=== PATIENT | female | born 1950 | race Caucasian/White ===

== ENCOUNTER 2018-08-17 16:49 | Observation (INO) | payer MEDICARE ==
[~2018-08-17] VITALS: Ht 177.8 cm; Wt 88.8 kg
[~2018-08-17 16:49] MED LIST: ALBU90I INH; ALBU90OI6 INH; ALBU90OI61 INH; ALEN35 PO; ALEN70 PO; ALPR.25 PO; AMIT25 PO; ATEN25 PO; ATEN50 PO; ATOR40TA PO; Antivert25 MG PO; BUPR150ER PO; CALCA500CH PO; CALCAVITD PO; CHOLESTYRAMINE PO; CITA20 PO; CYAN1000 PO; CYCL10 PO; Calcium + Vita1 EACH PO; Cortef5 MG PO; ERGO400 PO; ESOM20 PO; FERR325 PO; FERREX PO; FERROUS SULFATE PO; FIBER PO; FROV2.5 PO; GEMF600 PO; HYDACE10B PO; HYDCOR10 PO; HYOS.125 SL; IPRAOI INH; LEVSOD150 PO; LEVSOD200 PO; LISI10 PO; LISI5 PO; LOPE2C PO; LOVA40 PO; METO10 PO; OMEP20ER PO; OXYACE5T PO; PREG150 PO; PROM25 PO; Percocet 5-3251 EACH PO; Prilosec Otc20 MG PO; RANI150 PO; TOPI100 PO; TOPI50; TOPI50 PO; TRAM50 PO; TRAZ100 PO; TRAZ50 PO; ULTRA-LIGHT RO1 EACH MC; VITAMIN B12 PO; WARF1 PO; WARF5 PO; WARF7.5 PO; ZOLM2.5 PO; ZOLM5 PO; Zantac150 MG PO
[2018-08-17 17:20] LABS: BASOPHILS ABSOLUTE AUTO 0.03 K/mm3 (0.00-0.23); BASOPHILS PERCENT AUTO 0 % (0-2); EOSINOPHILS ABSOLUTE AUTO 0.01 K/mm3 (0.00-0.68); EOSINOPHILS PERCENT AUTO 0 % (0-6); Hematocrit 35.2 % (33.0-51.0); IMMATURE GRAN ABSOLUTE AUTO 0.09 K/mm3 (0.00-0.10); IMMATURE GRAN PERCENT AUTO 1 % (0-1); LYMPHOCYTES ABSOLUTE AUTO 1.94 K/mm3 (0.84-5.20); LYMPHOCYTES PERCENT AUTO 13 % (21-46); MONOCYTES ABSOLUTE AUTO 1.21 K/mm3 (0.16-1.47); MONOCYTES PERCENT AUTO 8 % (4-13); Mean Corpuscular HGB 32.9 pg (26.0-34.0); Mean Corpuscular HGB Conc 34.1 g/dL (31.5-36.5); Mean Platelet Volume 10.9 fL (9.1-12.4); NEUTROPHILS PERCENT AUTO 79 % (41-73); Platelet Count 286 K/mm3 (150-400); RDW Coefficient Variation 12.9 % (11.7-14.2); Red Blood Cell Count 3.65 M/mm3 (3.80-5.20); White Blood Cell Count 15.58 K/mm3 (4.00-11.30)
[2018-08-17 17:27] LABS: Mean Corpuscular Volume 96 fL (80-100)
[2018-08-17 17:34] LABS: International Normalized Ratio 1.06; Prothrombin Time Results 11.2 Sec (9.7-11.5)
[2018-08-17 17:44] LABS: Alanine Aminotransfer (ALT/SGP 38 U/L (12-78); Albumin/Globulin Ratio 0.6 (0.8-1.8); Alk Phos 69 U/L (50-136); Anion Gap 14 mmol/L (6-16); Aspartate Aminotrans (AST/SGOT 40 U/L (12-37); Bilirubin, Total 1.3 mg/dL (0.1-1.0); Blood Urea Nitrogen 23 mg/dL (8-24); Bun/Creatinine Ratio 12.2 (12.0-20.0); CO2, Blood 18 mmol/L (21-32); Chloride, Blood 101 mmol/L (98-108); Creatinine, Blood 1.89 mg/dL (0.40-1.00); Globulin, Blood 5.2 g/dL (2.2-4.0); Glomerular Filtration Rate 28 (60-); Glucose, Blood 196 mg/dL (70-99); Potassium, Blood 3.5 mmol/L (3.5-5.5); Sodium, Blood 133 mmol/L (136-145); Total Protein, Blood 8.2 g/dL (6.4-8.2); Troponin I <0.015 ng/mL (0.000-0.040)
[2018-08-17 18:53] LABS: Magnesium, Blood 2.1 mg/dL (1.6-2.4)
[2018-08-17 18:55] LABS: Thyroid Stimulating Hormone 0.015 uIU/mL (0.360-4.800)
[2018-08-17 19:01] LABS: Influenza A Negative (NEGATIVE); Influenza B Negative (NEGATIVE)
[2018-08-17 19:46] LABS: Free Thyroxine 1.46 ng/dL (0.70-1.60)
[2018-08-17 19:47] LABS: Triiodothyronine, Free 1.49 pg/mL (2.18-3.98)
[2018-08-17] MEDS ORDERED: METO50ER PO (19:48)
[2018-08-18 03:27] LABS: BASOPHILS ABSOLUTE AUTO 0.01 K/mm3 (0.00-0.23); BASOPHILS PERCENT AUTO 0 % (0-2); EOSINOPHILS ABSOLUTE AUTO 0.01 K/mm3 (0.00-0.68); EOSINOPHILS PERCENT AUTO 0 % (0-6); Hematocrit 28.8 % (33.0-51.0); Hemoglobin 9.4 g/dL (11.5-16.0); IMMATURE GRAN ABSOLUTE AUTO 0.05 K/mm3 (0.00-0.10); IMMATURE GRAN PERCENT AUTO 1 % (0-1); LYMPHOCYTES ABSOLUTE AUTO 0.62 K/mm3 (0.84-5.20); LYMPHOCYTES PERCENT AUTO 6 % (21-46); MONOCYTES ABSOLUTE AUTO 0.49 K/mm3 (0.16-1.47); MONOCYTES PERCENT AUTO 5 % (4-13); Mean Corpuscular HGB 32.1 pg (26.0-34.0); Mean Corpuscular HGB Conc 32.6 g/dL (31.5-36.5); Mean Corpuscular Volume 98 fL (80-100); NEUTROPHILS ABSOLUTE AUTO 9.37 K/mm3 (1.96-9.15); NEUTROPHILS PERCENT AUTO 89 % (41-73); Platelet Count 217 K/mm3 (150-400); RDW Coefficient Variation 13.1 % (11.7-14.2); RDW Standard Deviation 47.2 fL (35.1-46.3); Red Blood Cell Count 2.93 M/mm3 (3.80-5.20); White Blood Cell Count 10.55 K/mm3 (4.00-11.30)
[2018-08-18] MEDS ORDERED: XARELTO10 MG PO (03:37)
[2018-08-18 03:41] LABS: Bun/Creatinine Ratio 13.3 (12.0-20.0); Calcium, Blood 7.6 mg/dL (8.5-10.1); Creatinine, Blood 1.65 mg/dL (0.40-1.00); Potassium, Blood 3.5 mmol/L (3.5-5.5)
--- NOTE | 2018-08-18 07:31 | NUR ---
SHIFT SUMMARY PATIENT ADMITTED EARLIER THIS SHIFT. PATIENT ORIENTED TO THE ROOM, UNIT, AND CALL LIGHT. PATIENT PLEASENT AND COOPERATIVE. PATIENT ON CARDIZEM GTT AT 5 ML/HR. PATIENT ABLE TO GET UP TO THE BSC TO VOID AND WAS CONTINENT THROUGHOUT THE NIGHT. PATIENT APPEARED TO SLEEP WELL THROUGHOUT THE NIGHT. PATIENT ABLE TO MOVE SELF ABOUT IN BED. VITAL SIGNS CHARTED. REPORT GIVEN TO ONCOMING RN.
--- NOTE | 2018-08-18 07:44 | NUR ---
Pt noted to be in sinus rhythm, rate 86 bpm. Cardizem turned off and oral metoprolol given at this time. Vital signs WNL; the pt reports no complaints except for a productive cough with "dark brown sputum". States that had decreased her cigarette use to 1/3 pack a day, and has quit completely as of 1 week ago. She plans on quitting smoking from now on. Assisted to the bedside commode to void. She states that she is unsteady and feels weak. Gait belt used for transfer. Assisted back in bed at her request. She declined to use the chair for breakfast.
--- NOTE | 2018-08-18 08:36 | NUR ---
Call to the pt's pharmacy at this time to request current medication list with dosages and directions. The pt I was told was uncertain of these and the med list provided at admission was incomplete.
[2018-08-18] MEDS ORDERED: BUPR150ER PO (09:38)
[2018-08-18] MEDS ORDERED: VOLTAREN100 GM TOP (09:41)
[2018-08-18] MEDS ORDERED: LEVSOD137 PO (10:10)
[2018-08-18] MEDS ORDERED: TOPI50 PO (10:13)
[2018-08-18] MEDS ORDERED: SODBIC650 PO (10:18)
[2018-08-18] MEDS ORDERED: Cortef5 MG PO (10:20)
--- NOTE | 2018-08-18 10:30 | NUR ---
The pt is a bit wobbly on her feet. She states that at home she does not use a walker, but uses the furniture to stablize herself while moving around. She describes herself as "unsteady" on her feet, but denies having had any falls at home. We used the gait belt and 2 staff and then gait belt, FWW, and 1 staff member to assist her to and from the bathroom. Denies dizzyness/lightheadedness/pain with activity or at rest. Stool specimen collected and sent for GI panel as ordered.
--- NOTE | 2018-08-18 11:08 | NUR ---
The pt stood, walked into the hallway with the walker. Gait belt in use. Pt denied dizzyness/lightheadedness/pain, but once in the hallway she said that she thought she felt a little short of breath. Respirations observed were even, unlabored, at rate of 20/min and spo2 of 97%. No coughing, no dyspnea that I observed during the activity. She was stable on her feet with the use of the walker. Called Dr Steiner to notify her of the updated home med rec per pt's pharmacy records, and that the pt had systolic blood pressure of 94 mmHg, likely due to the higher dose of lisinopril given this morning, higher than what the pt usually takes at home, and the pt states that she usually takes it at night.
[2018-08-18 11:23] LABS: Adenovirus F 40/41 Not Detected (NOT DETECT); Campylobacter Sp Not Detected (NOT DETECT); Cryptosporidium Not Detected (NOT DETECT); Cyclospora Cayetanensis Not Detected (NOT DETECT); E. Coli O157 Not Detected (NOT DETECT); Entamoeba Histolytica Not Detected (NOT DETECT); Enteroaggregative E. coli-EAEC Not Detected (NOT DETECT); Enteropathogenic E. coli-EPEC Not Detected (NOT DETECT); Enterotoxigenic E. coli-ETEC Not Detected (NOT DETECT); Giardia Lamblia Not Detected (NOT DETECT); Plesiomonas Shigelloides Not Detected (NOT DETECT); Salmonella Sp Not Detected (NOT DETECT); Shiga Toxin-prod E. coli-STEC Not Detected (NOT DETECT); Shigella/Enteroin E. coli-EIEC Not Detected (NOT DETECT); Vibrio Cholerae Not Detected (NOT DETECT); Vibrio Sp Not Detected (NOT DETECT); Yersinia Enterocolitica Not Detected (NOT DETECT)
[2018-08-18 11:24] LABS: Astrovirus Not Detected (NOT DETECT); Norovirus GI/GII Not Detected (NOT DETECT); Rotavirus A Not Detected (NOT DETECT); Sapovirus Not Detected (NOT DETECT)
[2018-08-18] MEDS ORDERED: CALCIUM 500 +1 EAC3 PO (14:34)
[2018-08-18] MEDS ORDERED: BENZ100A PO (14:34)
[2018-08-18] MEDS ORDERED: LEVO750 PO (14:35)
--- NOTE | 2018-08-18 16:51 | NUR ---
Written prescription for front wheel walker was obtained from Dr. Steiner and handed to the patient. She was taken out for discharge in a wheelchair by the ADVERTISING VICE PRESIDENT to a private vehicle driven by the pt's [id number].
== END 2018-08-18 16:24 | disposition home or self-care (01) ==
LOC: ER 16:49 → PCU 16:50
PROVIDERS: Emergency Medicine; ADMIT Hospitalist
DX: I48.91 Unspecified atrial fibrillation (principal); J44.1 Chronic obstructive pulmonary disease with (acute) exacerbation; R19.7 Diarrhea, unspecified; E03.9 Hypothyroidism, unspecified; E11.9 Type 2 diabetes mellitus without complications; F32.9 Major depressive disorder, single episode, unspecified; F41.9 Anxiety disorder, unspecified; D50.9 Iron deficiency anemia, unspecified; R53.1 Weakness; F17.210 Nicotine dependence, cigarettes, uncomplicated; N18.3 Chronic kidney disease, stage 3 (moderate); Z88.1 Allergy status to other antibiotic agents; Z88.2 Allergy status to sulfonamides; Z79.01 Long term (current) use of anticoagulants; Z79.899 Other long term (current) drug therapy
CPT/HCPCS: 36415; 71046; 80048; 80053; 83605; 83735; 83880; 84145; 84439; 84443; 84481; 84484; 85025; 85610; 87507; 87804; 93005; 93010; 96365; 96366; 96367; 97116; 97161; 99285-25; G0378; J0696; J7030; J7120

== ENCOUNTER 2018-11-07 20:04 | Emergency (ER) | payer MEDICARE ==
[~2018-11-07] VITALS: Ht 170.2 cm; Wt 100.2 kg
[~2018-11-07 20:04] MED LIST changes: +BENZ100A PO; +CALCIUM 500 +1 EAC3 PO; +LEVO750 PO; +LEVSOD137 PO; +METO50ER PO; +SODBIC650 PO; +VOLTAREN100 GM TOP; +XARELTO10 MG PO
[2018-11-07 21:19] LABS: BASOPHILS ABSOLUTE AUTO 0.06 K/mm3 (0.00-0.23); BASOPHILS PERCENT AUTO 1 % (0-2); EOSINOPHILS ABSOLUTE AUTO 0.22 K/mm3 (0.00-0.68); EOSINOPHILS PERCENT AUTO 2 % (0-6); Hematocrit 35.4 % (33.0-51.0); Hemoglobin 11.7 g/dL (11.5-16.0); IMMATURE GRAN ABSOLUTE AUTO 0.03 K/mm3 (0.00-0.10); IMMATURE GRAN PERCENT AUTO 0 % (0-1); LYMPHOCYTES ABSOLUTE AUTO 3.28 K/mm3 (0.84-5.20); LYMPHOCYTES PERCENT AUTO 27 % (21-46); MONOCYTES ABSOLUTE AUTO 0.64 K/mm3 (0.16-1.47); MONOCYTES PERCENT AUTO 5 % (4-13); Mean Corpuscular HGB 33.3 pg (26.0-34.0); Mean Corpuscular HGB Conc 33.1 g/dL (31.5-36.5); Mean Corpuscular Volume 101 fL (80-100); Mean Platelet Volume 10.4 fL (9.1-12.4); NEUTROPHILS ABSOLUTE AUTO 7.77 K/mm3 (1.96-9.15); NEUTROPHILS PERCENT AUTO 65 % (41-73); Platelet Count 198 K/mm3 (150-400); RDW Coefficient Variation 13.4 % (11.7-14.2); RDW Standard Deviation 49.9 fL (35.1-46.3); Red Blood Cell Count 3.51 M/mm3 (3.80-5.20)
[2018-11-07 21:41] LABS: Albumin, Blood 3.9 g/dL (3.4-5.0); Albumin/Globulin Ratio 1.1 (0.8-1.8); Bilirubin, Total 0.7 mg/dL (0.1-1.0); Bun/Creatinine Ratio 6.8 (12.0-20.0); Calcium, Blood 8.8 mg/dL (8.5-10.1); Creatinine, Blood 1.77 mg/dL (0.40-1.00); Globulin, Blood 3.4 g/dL (2.2-4.0); Potassium, Blood 3.7 mmol/L (3.5-5.5); Total Protein, Blood 7.3 g/dL (6.4-8.2)
== END 2018-11-07 23:30 | disposition home or self-care (01) ==
LOC: ER 20:04
PROVIDERS: Emergency Medicine
DX: T62.91XA Toxic effect of unspecified noxious substance eaten as food, accidental (unintentional), initial encounter (principal); E11.9 Type 2 diabetes mellitus without complications; I48.91 Unspecified atrial fibrillation; Z88.1 Allergy status to other antibiotic agents; Z88.2 Allergy status to sulfonamides; Z91.030 Bee allergy status; Z91.048 Other nonmedicinal substance allergy status; Z88.8 Allergy status to other drugs, medicaments and biological substances
CPT/HCPCS: 36415; 80053; 83690; 85025; 93005; 93010; 96361; 96374; 99283-25; A9270-GY; J2405; J7030

== ENCOUNTER → 2020-02-01 | Outpatient (CLI) | payer MEDICARE ==
[2020-02-02 14:29] LABS: Stool Occult Bld Immuno 1 Positive (NEGATIVE); Stool Occult Bld Immuno 2 Positive (NEGATIVE)
[2020-02-02 17:22] LABS: Campylobacter Sp Not Detected (NOT DETECT)
[2020-02-02 17:23] LABS: Adenovirus F 40/41 Not Detected (NOT DETECT); Astrovirus Not Detected (NOT DETECT); Cryptosporidium Not Detected (NOT DETECT); Cyclospora Cayetanensis Not Detected (NOT DETECT); E. Coli O157 Not Detected (NOT DETECT); Entamoeba Histolytica Not Detected (NOT DETECT); Enteroaggregative E. coli-EAEC Not Detected (NOT DETECT); Enteropathogenic E. coli-EPEC Not Detected (NOT DETECT); Enterotoxigenic E. coli-ETEC Not Detected (NOT DETECT); Giardia Lamblia Not Detected (NOT DETECT); Norovirus GI/GII Not Detected (NOT DETECT); Plesiomonas Shigelloides Not Detected (NOT DETECT); Rotavirus A Not Detected (NOT DETECT); Salmonella Sp Not Detected (NOT DETECT); Sapovirus Not Detected (NOT DETECT); Shiga Toxin-prod E. coli-STEC Not Detected (NOT DETECT); Shigella/Enteroin E. coli-EIEC Not Detected (NOT DETECT); Vibrio Cholerae Not Detected (NOT DETECT); Vibrio Sp Not Detected (NOT DETECT); Yersinia Enterocolitica Not Detected (NOT DETECT)
== END | disposition home or self-care (01) ==
LOC: LAB SHORT 09:00 → LAB 09:00 → LAB FUT 01-27 14:30
PROVIDERS: Internal Medicine Gastroenterology
DX: D69.6 Thrombocytopenia, unspecified (principal); R19.7 Diarrhea, unspecified
CPT/HCPCS: 0097U; 82274

== ENCOUNTER 2020-03-14 08:50 | Day surgery (SDC) | payer MEDICARE ==
[~2020-03-14 08:50] MED LIST changes: +ANORO ELLIPTA1 EAC1; +HYDHCL25 PO; +PARO10 PO; +Prinivil10 MG PO; +Vitamin D2000 UNIT PO; +XARELTO20 MG PO
== END 2020-03-14 11:54 | disposition home or self-care (01) ==
LOC: ORSCSDS 08:50
PROVIDERS: Internal Medicine Gastroenterology
PROC: 0DBN8ZX Excision of Sigmoid Colon, Via Natural or Artificial Opening Endoscopic, Diagnostic (ICD-10-PCS; principal; 2020-03-14 10:15)
PROC: 0DBE8ZX Excision of Large Intestine, Via Natural or Artificial Opening Endoscopic, Diagnostic (ICD-10-PCS; principal; 2020-03-14 10:15)
PROC: 0DBH8ZX Excision of Cecum, Via Natural or Artificial Opening Endoscopic, Diagnostic (ICD-10-PCS; principal; 2020-03-14 10:15)
PROC: 0DBM8ZX Excision of Descending Colon, Via Natural or Artificial Opening Endoscopic, Diagnostic (ICD-10-PCS; principal; 2020-03-14 10:15)
DX: R19.5 Other fecal abnormalities (principal); R19.7 Diarrhea, unspecified; D12.0 Benign neoplasm of cecum; D12.4 Benign neoplasm of descending colon; K63.5 Polyp of colon; R74.8 Abnormal levels of other serum enzymes; K57.30 Diverticulosis of large intestine without perforation or abscess without bleeding; F17.210 Nicotine dependence, cigarettes, uncomplicated; Z79.01 Long term (current) use of anticoagulants; Z79.899 Other long term (current) drug therapy
CPT/HCPCS: 82947; 88305; J2704; J7120

== ENCOUNTER 2020-05-03 05:11 | Inpatient (IN) | payer MEDICARE ==
[~2020-05-03] VITALS: Ht 170.2 cm; Wt 81.7 kg
[2020-05-03 06:03] LABS: BASOPHILS ABSOLUTE AUTO 0.05 K/mm3 (0.00-0.23); BASOPHILS PERCENT AUTO 1 % (0-2); EOSINOPHILS ABSOLUTE AUTO 0.14 K/mm3 (0.00-0.68); EOSINOPHILS PERCENT AUTO 2 % (0-6); Hematocrit 33.1 % (33.0-51.0); Hemoglobin 10.7 g/dL (11.5-16.0); IMMATURE GRAN ABSOLUTE AUTO 0.02 K/mm3 (0.00-0.10); IMMATURE GRAN PERCENT AUTO 0 % (0-1); LYMPHOCYTES ABSOLUTE AUTO 3.33 K/mm3 (0.84-5.20); LYMPHOCYTES PERCENT AUTO 40 % (21-46); MONOCYTES PERCENT AUTO 10 % (4-13); Mean Corpuscular HGB 33.3 pg (26.0-34.0); Mean Corpuscular HGB Conc 32.3 g/dL (31.5-36.5); Mean Corpuscular Volume 103 fL (80-100); NEUTROPHILS ABSOLUTE AUTO 4.01 K/mm3 (1.96-9.15); NEUTROPHILS PERCENT AUTO 48 % (41-73); Platelet Count 203 K/mm3 (150-400); RDW Coefficient Variation 12.7 % (11.7-14.2); Red Blood Cell Count 3.21 M/mm3 (3.80-5.20); White Blood Cell Count 8.35 K/mm3 (4.00-11.30)
[2020-05-03 06:15] LABS: Albumin/Globulin Ratio 0.9 (0.8-1.8); Bilirubin, Total 0.2 mg/dL (0.1-1.0); Bun/Creatinine Ratio 10.9 (12.0-20.0); Calcium, Blood 8.5 mg/dL (8.5-10.1); Creatinine, Blood 1.01 mg/dL (0.40-1.00); Globulin, Blood 3.3 g/dL (2.2-4.0); Potassium, Blood 4.2 mmol/L (3.5-5.5); Total Protein, Blood 6.3 g/dL (6.4-8.2)
[2020-05-03 08:16] LABS: Source, Urine Catheter
[2020-05-03 08:23] LABS: Appearance, Urine Clear (Clear); Bilirubin, Urine Neg (Neg); Blood, Urine Neg (Neg); Color, Urine Yellow (P-Yellow); Glucose Qualitative, Urine Neg (Neg); Ketones, Urine Neg (Neg); Leukocyte Esterase, Urine Neg (Neg); Nitrite, Urine Neg (Neg); Protein, Urine Neg (Neg); Urobilinogen, Urine NORM (Normal)
[2020-05-03] MEDS ORDERED: Cortef5 MG PO ×2 (11:50→11:51)
[2020-05-03] MEDS ORDERED: LISI5 PO (11:51)
[2020-05-03] MEDS ORDERED: PAXIL40 M1 PO (11:51)
[2020-05-03] MEDS ORDERED: STIOLTO RESPIMAT4 G1 INH (11:52)
[2020-05-03] MEDS ORDERED: DDAVP0.1 MG PO (11:52)
[2020-05-03] MEDS ORDERED: ATOR40TA PO (11:52)
[2020-05-03] MEDS ORDERED: K-TAB ER20 ME1 PO (11:52)
[2020-05-03] MEDS ORDERED: SYNTHROID137 MCG PO (11:53)
[2020-05-03] MEDS ORDERED: Inderal 20 mg T20 MG PO (11:53)
[2020-05-03] MEDS ORDERED: IMITREX50 MG PO (11:54)
[2020-05-03] MEDS ORDERED: TROKENDI XR100 MG PO (11:54)
--- NOTE | 2020-05-03 18:26 | NUR ---
SHIFT SUMMARY S/P L HIP FX, A/O X4, VSS, WAS NPO TILL SURGICAL CONSULT, PLAN IS TO HAVE SURGERY TOMORROW, WILL ORDER DINNER TRAY AND RESUME NPO AFTER MIDNIGHT. ON BEDREST TILL SURGERY, PAIN WELL CONTROLLED. CALL LIGHT IN REACH, WILL CONTINUE TO MONITOR AND REPORT TO ONCOMING NOC RN.
--- NOTE | 2020-05-03 23:07 | NUR ---
TELEMETRY APPLIED PER MD ORDERS, SHOWS NSR 72 PER EVAN SANCHEZ. SAFETY MEASURES IN PLACE. WILL CONTINUE TO MONITOR.
[2020-05-04 04:44] LABS: BASOPHILS ABSOLUTE AUTO 0.08 K/mm3 (0.00-0.23); BASOPHILS PERCENT AUTO 1 % (0-2); EOSINOPHILS ABSOLUTE AUTO 0.14 K/mm3 (0.00-0.68); EOSINOPHILS PERCENT AUTO 1 % (0-6); Hematocrit 34.3 % (33.0-51.0); IMMATURE GRAN ABSOLUTE AUTO 0.03 K/mm3 (0.00-0.10); IMMATURE GRAN PERCENT AUTO 0 % (0-1); LYMPHOCYTES ABSOLUTE AUTO 3.29 K/mm3 (0.84-5.20); LYMPHOCYTES PERCENT AUTO 28 % (21-46); MONOCYTES ABSOLUTE AUTO 1.07 K/mm3 (0.16-1.47); MONOCYTES PERCENT AUTO 9 % (4-13); Mean Corpuscular HGB 32.8 pg (26.0-34.0); Mean Corpuscular HGB Conc 32.1 g/dL (31.5-36.5); Mean Corpuscular Volume 102 fL (80-100); Mean Platelet Volume 10.5 fL (9.1-12.4); NEUTROPHILS PERCENT AUTO 61 % (41-73); Platelet Count 197 K/mm3 (150-400); RDW Coefficient Variation 12.6 % (11.7-14.2); RDW Standard Deviation 47.4 fL (35.1-46.3); Red Blood Cell Count 3.35 M/mm3 (3.80-5.20); White Blood Cell Count 11.71 K/mm3 (4.00-11.30)
[2020-05-04 05:28] LABS: Bun/Creatinine Ratio 11.6 (12.0-20.0); Calcium, Blood 8.8 mg/dL (8.5-10.1); Creatinine, Blood 1.12 mg/dL (0.40-1.00); Potassium, Blood 3.9 mmol/L (3.5-5.5)
--- NOTE | 2020-05-04 06:07 | NUR ---
SHIFT SUMMARY LYING IN LOW FOWLERS WITH EYES CLOSED. AAO X4, FOLLOWS ALL COMMANDS. HAS RESTED OFF AND ON. NO SIGNIFICANT CHANGES THROUGHOUT SHIFT. MEDICATED FOR PAIN PRN PER MD ORDERS. HAS BEEN NPO FOR SX TO LEFT FEMOR TODAY. DENIES PAIN, DISCOMFORT, OR FURTHER NEEDDS AT THIS TIME. SAFETY MEASURES IN PLACE. WILL CONTINUE TO MONITOR AND GIVE HAND OFF TO ONCOMING SHIFT USING SBAR.
[2020-05-04 08:25] LABS: Influenza A, PCR Negative (NEGATIVE); Influenza B, PCR Negative (NEGATIVE); Resp Syncytial Virus, PCR Negative (NEGATIVE); SARS-Cov-2 (COVID-19) PCR, MMC Negative (NEGATIVE)
--- NOTE | 2020-05-04 11:41 | NUR ---
PT TO DAY SURGERY VIA HOSPITAL BED
--- NOTE | 2020-05-04 11:45 | NUR ---
PT ADMITTED TO [facility]. AGREES WITH PLANNED SURGERY. LUNG SOUNDS CLEAR.
--- NOTE | 2020-05-04 14:59 | NUR ---
POST OP ARRIVES TO ROOM ON HOSPITAL BED. DROWSY BUT OPENS EYES. LUNGS DIM IN BASES AND ABSENT RUL, UNCHANGED FROM THIS AM ASSESSMENT. TELE PLACED; NSR @ 77. VSS. L THIGH SOFT. MINIMAL SWELLING NOTED. 2 SURG SITES W/ GAUZE & PRESSURE TAPE. NO DRAINAGE NOTED. BED ALARM ON. TEDS & SCDS IN PLACE.
[2020-05-05 04:27] LABS: BASOPHILS ABSOLUTE AUTO 0.03 K/mm3 (0.00-0.23); BASOPHILS PERCENT AUTO 0 % (0-2); EOSINOPHILS ABSOLUTE AUTO 0.08 K/mm3 (0.00-0.68); EOSINOPHILS PERCENT AUTO 1 % (0-6); Hematocrit 31.4 % (33.0-51.0); IMMATURE GRAN ABSOLUTE AUTO 0.04 K/mm3 (0.00-0.10); IMMATURE GRAN PERCENT AUTO 0 % (0-1); LYMPHOCYTES ABSOLUTE AUTO 2.23 K/mm3 (0.84-5.20); LYMPHOCYTES PERCENT AUTO 21 % (21-46); MONOCYTES ABSOLUTE AUTO 1.19 K/mm3 (0.16-1.47); MONOCYTES PERCENT AUTO 11 % (4-13); Mean Corpuscular HGB 32.7 pg (26.0-34.0); Mean Corpuscular HGB Conc 31.8 g/dL (31.5-36.5); Mean Corpuscular Volume 103 fL (80-100); Mean Platelet Volume 10.3 fL (9.1-12.4); NEUTROPHILS ABSOLUTE AUTO 7.12 K/mm3 (1.96-9.15); NEUTROPHILS PERCENT AUTO 67 % (41-73); Platelet Count 173 K/mm3 (150-400); RDW Coefficient Variation 12.3 % (11.7-14.2); RDW Standard Deviation 46.4 fL (35.1-46.3); Red Blood Cell Count 3.06 M/mm3 (3.80-5.20); White Blood Cell Count 10.69 K/mm3 (4.00-11.30)
[2020-05-05 04:50] LABS: Bun/Creatinine Ratio 11.8 (12.0-20.0); Calcium, Blood 8.4 mg/dL (8.5-10.1); Creatinine, Blood 1.19 mg/dL (0.40-1.00); Potassium, Blood 3.8 mmol/L (3.5-5.5)
--- NOTE | 2020-05-05 05:56 | NUR ---
SHIFT SUMMARY: PT POD#1 FOR A LEFT HIP REPAIR. PAINFUL IN BEGINNING OF SHIFT AND MEDICATED WITH TYLENOL AND FLEXIRIL PER EMAR. LEFT LEG ELEVATED ON PILLOWS. PT DROWSY THROUGHOUT NIGHT, HOWEVER ARROUSABLE AND RESPONDING TO QUESTIONS APPROPRIATLY. VS WNL. DRESSING C/D/I. IVF AND ABX INFUSING PER EMAR. PLAN FOR PHYSICAL THERAPY TODAY.
--- NOTE | 2020-05-05 07:33 | NUR ---
PT WITH SBP IN 80'S. PT REPORTS "A LITTLE DIZZY/LIGHTHEADED". PT SLOW TO RESPOND BUT A/O. SPEECH CLEAR. PT HOB DOWN SOME. DISCUSSED WITH DR TAPIA, REPORTS TO GIVE 500ML SALINE BOLUS. DISCUSSED WITH NECKTIE OPERATOR POCKETS AND PIECES D.G..
--- NOTE | 2020-05-05 07:46 | NUR ---
SALINE BOLUS STARTED, IV APPEARS WNL.
--- NOTE | 2020-05-05 09:18 | NUR ---
IVF BOLUS STILL BEING COMPLETED PT'S IV WAS IN RAC AND DID NOT INFUSE WHILE PT WAS EATING. PT RESTING QUIETLY. AWAKENS EASILY. URINE IN COTTON BAG C/Y URINE.
--- NOTE | 2020-05-05 09:57 | NUR ---
DR TAPIA RECENTLY HERE TO SEE PT. DISCUSSED PT'S STATUS WITH DR TAPIA. DR TAPIA DISCUSSED MEDICATIONS AND IVF WITH RN, SEE ORDERS.
--- NOTE | 2020-05-05 10:24 | NUR ---
MARKETING DEVELOPMENT REPRESENTATIVE IN ROOM. PT DENIES DIZZINESS/LIGHTHEADEDNESS.
--- NOTE | 2020-05-05 10:30 | NUR ---
DR ZUNIGA HERE TO SEE PT.
--- NOTE | 2020-05-05 11:30 | NUR ---
PT CONT TO DENY DIZZINESS. THERAPY IN ROOM WORKING WITH PT.
--- NOTE | 2020-05-05 11:38 | NUR ---
THERAPY REPORTED THAT PT BECAME DIZZY WHEN SITTING UP, LYED BACK DOWN. BP WNL.
--- NOTE | 2020-05-05 12:26 | NUR ---
ANDREI HERE TO SEE PT.
--- NOTE | 2020-05-05 15:39 | NUR ---
BIT SETTER HERE TO TALK WITH PT.
--- NOTE | 2020-05-05 16:29 | NUR ---
PT UP TO CHAIR WITH 2 MAX ASSIST. PT CALL LIGHT IN REACH.
--- NOTE | 2020-05-05 17:10 | NUR ---
DR SHERWOODTRATE NOTIFIED OF PT'S IV INFILTRATED SMALL AMOUNT. PT TELE REMAINED SR 80'S WITH NO EVENTS. PT WAS INITIALLY DIZZY WHEN GETTING UP BUT WAS BETTER AFTER BEING IN CHAIR. PT VSS. DR REPORTS MAY LEAVE IV OUT, D/C TELE, SEE OTHER ORDERS REGARDING MEDICATIONS.
--- NOTE | 2020-05-05 17:50 | NUR ---
TELE DC'D PER ORDER. DISCUSSED NEW ORDERS WITH PT FROM DR TAPIA.
--- NOTE | 2020-05-05 19:17 | NUR ---
SHIFT SUMMARY PT EATING AND DRINKING, PT HAS COTTON IN PLACE, TO BE DC'D TOMMORROW. PT WAS U TO CHAIR WITH 2 MAX ASSIST THIS AFTERNOON PER PT REQ. PT ATE DINNER IN CHAIR. PT HAD LOW BP THIS AM, BETTER THIS AFTERNOON, SEE OTHER NOTES FROM TODAY. PT BEEN ASSISTED WITH ADL'S PRN. PT BEEN MED PRN PAIN WITH TYLENOL. PT BEEN PLEASANT AND COOPERATIVE. PRESSURE TESTER OPERATOR BEEN TO SEE PT. DR WONG WAS HERE EARLIER TODAY TO SEE PT AND ANDREI WAS HERE TO SEE PT TODAY WELL. PT UP IN CHAIR CALL LIGHT IN REACH.
[2020-05-06 04:03] LABS: BASOPHILS ABSOLUTE AUTO 0.03 K/mm3 (0.00-0.23); BASOPHILS PERCENT AUTO 0 % (0-2); EOSINOPHILS ABSOLUTE AUTO 0.11 K/mm3 (0.00-0.68); EOSINOPHILS PERCENT AUTO 1 % (0-6); Hematocrit 28.2 % (33.0-51.0); Hemoglobin 9.3 g/dL (11.5-16.0); IMMATURE GRAN ABSOLUTE AUTO 0.02 K/mm3 (0.00-0.10); IMMATURE GRAN PERCENT AUTO 0 % (0-1); LYMPHOCYTES ABSOLUTE AUTO 1.41 K/mm3 (0.84-5.20); LYMPHOCYTES PERCENT AUTO 17 % (21-46); MONOCYTES ABSOLUTE AUTO 0.81 K/mm3 (0.16-1.47); MONOCYTES PERCENT AUTO 10 % (4-13); Mean Corpuscular HGB 33.5 pg (26.0-34.0); Mean Corpuscular Volume 101 fL (80-100); Mean Platelet Volume 10.2 fL (9.1-12.4); NEUTROPHILS ABSOLUTE AUTO 5.91 K/mm3 (1.96-9.15); NEUTROPHILS PERCENT AUTO 71 % (41-73); Platelet Count 160 K/mm3 (150-400); RDW Standard Deviation 45.2 fL (35.1-46.3); Red Blood Cell Count 2.78 M/mm3 (3.80-5.20); White Blood Cell Count 8.29 K/mm3 (4.00-11.30)
--- NOTE | 2020-05-06 05:26 | NUR ---
PATIENT HAS SLEPT THROUGH OUT THE NIGHT. SHE WAKES TO VERBAL AND HAS NO COMPLAINTS OF PAIN. COTTON CATH REMOVED WITH OUT ISSUE. NO ACUTE CHANGES.
--- NOTE | 2020-05-06 07:57 | NUR ---
assisted pt oob to bsc unable to void then to recliner to eat breakfast
--- NOTE | 2020-05-06 09:27 | NUR ---
pt working with physical therapy had small bm unable to void still when done with therapy will bladder scan
--- NOTE | 2020-05-06 09:45 | NUR ---
pt b/p while sitting in recliner 126/63 also bladder scanned pt 154 encouraged pt to drink more fluids no iv access pt had dizziness getting up with physical therapy also discussed with pt holding her b/p meds this week will also discuss with family
--- NOTE | 2020-05-06 10:04 | NUR ---
istrate by to see pt req a 500 ml bolus prior to talking with me i updated him on her vs and bladder scan ok to take oral route vs iv for fluid challenge
[2020-05-06] MEDS ORDERED: Acetaminophen650 M1 PO (10:34)
--- NOTE | 2020-05-06 16:10 | NUR ---
dressing applied discharge instructions reviewed with pt verbalized
--- NOTE | 2020-05-06 16:54 | NUR ---
WC ESCORT TO CAR NO ACUTE CHANGES
== END 2020-05-06 16:54 | disposition home or self-care (01) | DRG 481 ==
LOC: ER 05:11 → SURS 06:10 → ERHOLD 06:10 → SURS 11:27
PROVIDERS: Emergency Medicine; Family Medicine; Orthopaedic Surgery; ADMIT Internal Medicine
PROC: 0QH706Z Insertion of Intramedullary Internal Fixation Device into Left Upper Femur, Open Approach (ICD-10-PCS; principal; 2020-05-04 07:30)
DX: S72.142A Displaced intertrochanteric fracture of left femur, initial encounter for closed fracture (principal); E23.0 Hypopituitarism; J44.9 Chronic obstructive pulmonary disease, unspecified; E03.9 Hypothyroidism, unspecified; F41.8 Other specified anxiety disorders; D50.9 Iron deficiency anemia, unspecified; I48.0 Paroxysmal atrial fibrillation; I12.9 Hypertensive chronic kidney disease with stage 1 through stage 4 chronic kidney disease, or unspecified chronic kidney disease; N18.30 Chronic kidney disease, stage 3 unspecified; E11.22 Type 2 diabetes mellitus with diabetic chronic kidney disease; E78.5 Hyperlipidemia, unspecified; K21.9 Gastro-esophageal reflux disease without esophagitis; F17.210 Nicotine dependence, cigarettes, uncomplicated
CPT/HCPCS: 0241U; 36415; 51702; 71045; 73502; 80048; 80053; 81003; 82947; 85025; 93005; 93010; 94760; 96374-59; 96375-59; 97161; 97166; 97530; 99285-25; A9270; A9270-GY; C1713; C1769; J0330; J1170; J2405; J3010; J7030; J7040; J7120; Q2038

== ENCOUNTER 2020-05-07 20:38 | Inpatient (IN) | payer MEDICARE ==
[~2020-05-07] VITALS: Ht 170.2 cm; Wt 84.2 kg
[~2020-05-07 20:38] MED LIST changes: +Acetaminophen650 M1 PO; +DDAVP0.1 MG PO; +IMITREX50 MG PO; +Inderal 20 mg T20 MG PO; +K-TAB ER20 ME1 PO; +PAXIL40 M1 PO; +STIOLTO RESPIMAT4 G1 INH; +SYNTHROID137 MCG PO; +TROKENDI XR100 MG PO
[2020-05-07 20:59] LABS: BASOPHILS ABSOLUTE AUTO 0.06 K/mm3 (0.00-0.23); BASOPHILS PERCENT AUTO 0 % (0-2); EOSINOPHILS ABSOLUTE AUTO 0.14 K/mm3 (0.00-0.68); EOSINOPHILS PERCENT AUTO 1 % (0-6); Hematocrit 31.2 % (33.0-51.0); Hemoglobin 10.5 g/dL (11.5-16.0); IMMATURE GRAN ABSOLUTE AUTO 0.05 K/mm3 (0.00-0.10); IMMATURE GRAN PERCENT AUTO 0 % (0-1); LYMPHOCYTES ABSOLUTE AUTO 1.51 K/mm3 (0.84-5.20); LYMPHOCYTES PERCENT AUTO 10 % (21-46); MONOCYTES ABSOLUTE AUTO 1.04 K/mm3 (0.16-1.47); MONOCYTES PERCENT AUTO 7 % (4-13); Mean Corpuscular HGB 33.2 pg (26.0-34.0); Mean Corpuscular HGB Conc 33.7 g/dL (31.5-36.5); Mean Corpuscular Volume 99 fL (80-100); Mean Platelet Volume 10.5 fL (9.1-12.4); NEUTROPHILS ABSOLUTE AUTO 12.67 K/mm3 (1.96-9.15); NEUTROPHILS PERCENT AUTO 82 % (41-73); Platelet Count 222 K/mm3 (150-400); RDW Coefficient Variation 11.8 % (11.7-14.2); RDW Standard Deviation 42.6 fL (35.1-46.3); Red Blood Cell Count 3.16 M/mm3 (3.80-5.20); White Blood Cell Count 15.47 K/mm3 (4.00-11.30)
[2020-05-07 21:16] LABS: Albumin, Blood 2.6 g/dL (3.4-5.0); Albumin/Globulin Ratio 0.6 (0.8-1.8); Bun/Creatinine Ratio 15.3 (12.0-20.0); Calcium, Blood 8.7 mg/dL (8.5-10.1); Creatinine, Blood 0.98 mg/dL (0.40-1.00); Globulin, Blood 4.3 g/dL (2.2-4.0); Potassium, Blood 3.9 mmol/L (3.5-5.5); Total Protein, Blood 6.9 g/dL (6.4-8.2)
[2020-05-07 21:47] LABS: Source, Urine Clean Catch
[2020-05-07 21:51] LABS: Appearance, Urine Hazy (Clear); Bilirubin, Urine Neg (Neg); Blood, Urine 4+ (Neg); Color, Urine Amber (P-Yellow); Glucose Qualitative, Urine Neg (Neg); Ketones, Urine Neg (Neg); Leukocyte Esterase, Urine 3+ (Neg); Nitrite, Urine Pos (Neg); Protein, Urine 3+ (Neg); Urobilinogen, Urine 1+ (Normal)
[2020-05-07 21:57] LABS: White Blood Cells, Urine TNTC /hpf (0-5)
[2020-05-07 21:58] LABS: Bacteria Many /hpf; Squamous Epithelial Cells Not Seen /hpf (Few)
[2020-05-08 05:11] LABS: BASOPHILS ABSOLUTE AUTO 0.02 K/mm3 (0.00-0.23); BASOPHILS PERCENT AUTO 0 % (0-2); EOSINOPHILS ABSOLUTE AUTO 0.03 K/mm3 (0.00-0.68); EOSINOPHILS PERCENT AUTO 0 % (0-6); Hemoglobin 9.2 g/dL (11.5-16.0); IMMATURE GRAN ABSOLUTE AUTO 0.06 K/mm3 (0.00-0.10); IMMATURE GRAN PERCENT AUTO 1 % (0-1); LYMPHOCYTES ABSOLUTE AUTO 0.79 K/mm3 (0.84-5.20); LYMPHOCYTES PERCENT AUTO 6 % (21-46); MONOCYTES ABSOLUTE AUTO 0.48 K/mm3 (0.16-1.47); MONOCYTES PERCENT AUTO 4 % (4-13); Mean Corpuscular HGB 33.9 pg (26.0-34.0); Mean Corpuscular HGB Conc 34.1 g/dL (31.5-36.5); Mean Corpuscular Volume 100 fL (80-100); Mean Platelet Volume 10.6 fL (9.1-12.4); NEUTROPHILS ABSOLUTE AUTO 11.24 K/mm3 (1.96-9.15); NEUTROPHILS PERCENT AUTO 89 % (41-73); Platelet Count 199 K/mm3 (150-400); RDW Coefficient Variation 11.9 % (11.7-14.2); RDW Standard Deviation 43.6 fL (35.1-46.3); Red Blood Cell Count 2.71 M/mm3 (3.80-5.20); White Blood Cell Count 12.62 K/mm3 (4.00-11.30)
[2020-05-08 05:25] LABS: Anion Gap 7 mmol/L (6-16); Blood Urea Nitrogen 14 mg/dL (8-24); Bun/Creatinine Ratio 15.2 (12.0-20.0); CO2, Blood 20 mmol/L (21-32); Calcium, Blood 7.7 mg/dL (8.5-10.1); Chloride, Blood 104 mmol/L (98-108); Creatinine, Blood 0.92 mg/dL (0.40-1.00); Glomerular Filtration Rate >60 (60-); Glucose, Blood 154 mg/dL (70-99); Potassium, Blood 3.8 mmol/L (3.5-5.5); Sodium, Blood 131 mmol/L (136-145)
--- NOTE | 2020-05-08 06:29 | NUR ---
PT ARRIVED TO UNIT AT 0020. PT APPEARS DROWSY AT TIME OF ADMISSION AND EASILY AROUSIBLE TO VOICE. INTRODUCED TO STAFF AND ROOM. PT HAD RECENT SURGERY TO LEFT HIP. DRESSING ON SURGICAL SITE IS C.D.I. DOES NOT APPEAR TO HAVE OTHER SKIN ISSUES. LEFT HIP PAIN WITH REPOSITIONING AND TOLERABLE WHILE RESTING. ROOM AIR, DENIES SOB. TELE IN PLACE- SR IN THE 60'S. BED ALARM IN PLACE, CALL LIGHT WITHIN REACH. WILL CONTINUE TO MONITOR. 0550 PT IS NOW MUCH MORE ALERT. SHE IS A/O X4 AND WATCHING TV IN BED. CALLS APPROPRIATELY. VSS. BED ALARM IN PLACE, CALL LIGHT WITHIN REACH. CONTINOUS NS INFUSING AT 100ML/HR.
--- NOTE | 2020-05-08 13:45 | NUR ---
ALERT. ORIENTED. SURGICAL DRESSING TO LT LATERAL HIP DRY, INTACT. PER PATIENT TO BE CHANGED IN ONE WEEK. BRUSING TO HIP AND BUTTOCK. COOPERATIVE. USED BSC THIS AM WITH MAX 2 PERSON ASSIST. PATIENT DID NOT COORDINATE HER LE MOVEMENTS VERY WELL. HAD P.T. EVAL. PATIENT STS HAD 24 HOUR CAREGIVERS BUT NOT "THE RIGHT CAREGEIVERS". STS WILL GO TO REHAB. GIVEN MEDS FOR HEADACHE WITH TYLENOL WORKING BEST. TELE ON AND HAS BEEN SR WITH PAC'S. TAHIRA
--- NOTE | 2020-05-08 19:30 | NUR ---
ROOM CHANGE MOVED TO ROOM 360 FROM 345.
--- NOTE | 2020-05-08 19:44 | NUR ---
REPORT RECIEVED REPORT FROM EDWIN COLVIN RN @ 194. PT APPEARS A/O, PLEASANT AND COOPERATIVE. SETTELED IN NEW ROOM. CURRENTLY WATCHING TV. WILL CONTINUE WITH CURRENT PLAN OF CARE AND UPDATE NEEDED
--- NOTE | 2020-05-08 19:45 | NUR ---
transferred PT to room 360 to care of Shaista WAYNE. reviewed meds allergies & plan of care & provided regulatory to Shaista WAYNE at 1940
--- NOTE | 2020-05-09 04:31 | NUR ---
SHIFT SUMMARY A/O, ABLE TO MAKE NEEDS KNOWN. COOPERATIVE WITH CARE. CALLS AND ANSWERS QUESTIONS APPROPRIATELY. NO C/O PAIN/DISCOMFORT. BEDREST T/O NIGHT; /c BEDPAN FOR VOIDS. CONTINUES RUNNING IV FLUIDS WITHOUT COMPLICATIONS. VSS/AFEBRILE. NO ACUTE CHANGES NOTED OVERNIGHT. BED REAMINED IN LOWEST POSITION. CALL LIGHT AND BELONGINGS WITHIN REACH. REPORT TO ONCOMING RN.
[2020-05-09 05:21] LABS: BASOPHILS ABSOLUTE AUTO 0.02 K/mm3 (0.00-0.23); BASOPHILS PERCENT AUTO 0 % (0-2); EOSINOPHILS PERCENT AUTO 0 % (0-6); Hematocrit 23.2 % (33.0-51.0); Hemoglobin 7.8 g/dL (11.5-16.0); IMMATURE GRAN ABSOLUTE AUTO 0.09 K/mm3 (0.00-0.10); IMMATURE GRAN PERCENT AUTO 1 % (0-1); LYMPHOCYTES ABSOLUTE AUTO 0.96 K/mm3 (0.84-5.20); LYMPHOCYTES PERCENT AUTO 8 % (21-46); MONOCYTES ABSOLUTE AUTO 0.71 K/mm3 (0.16-1.47); MONOCYTES PERCENT AUTO 6 % (4-13); Mean Corpuscular HGB 33.5 pg (26.0-34.0); Mean Corpuscular HGB Conc 33.6 g/dL (31.5-36.5); Mean Corpuscular Volume 100 fL (80-100); NEUTROPHILS ABSOLUTE AUTO 10.97 K/mm3 (1.96-9.15); NEUTROPHILS PERCENT AUTO 86 % (41-73); Platelet Count 211 K/mm3 (150-400); RDW Coefficient Variation 12.1 % (11.7-14.2); RDW Standard Deviation 43.8 fL (35.1-46.3); Red Blood Cell Count 2.33 M/mm3 (3.80-5.20); White Blood Cell Count 12.75 K/mm3 (4.00-11.30)
[2020-05-09 05:55] LABS: Alanine Aminotransfer (ALT/SGP 49 U/L (12-78); Albumin, Blood 2.2 g/dL (3.4-5.0); Albumin/Globulin Ratio 0.6 (0.8-1.8); Alk Phos 73 U/L (50-136); Anion Gap 7 mmol/L (6-16); Aspartate Aminotrans (AST/SGOT 70 U/L (12-37); Bilirubin, Total 0.5 mg/dL (0.1-1.0); Blood Urea Nitrogen 14 mg/dL (8-24); Bun/Creatinine Ratio 15.8 (12.0-20.0); CO2, Blood 20 mmol/L (21-32); Calcium, Blood 8.2 mg/dL (8.5-10.1); Chloride, Blood 107 mmol/L (98-108); Creatinine, Blood 0.89 mg/dL (0.40-1.00); Globulin, Blood 3.4 g/dL (2.2-4.0); Glomerular Filtration Rate >60 (60-); Glucose, Blood 170 mg/dL (70-99); Potassium, Blood 3.4 mmol/L (3.5-5.5); Sodium, Blood 134 mmol/L (136-145); Total Protein, Blood 5.6 g/dL (6.4-8.2)
[2020-05-09 10:30] LABS: Percent Saturation 23.2 % (15.0-50.0)
[2020-05-09 11:44] LABS: Influenza A, PCR Negative (NEGATIVE); Influenza B, PCR Negative (NEGATIVE); Resp Syncytial Virus, PCR Negative (NEGATIVE); SARS-Cov-2 (COVID-19) PCR, MMC Negative (NEGATIVE)
[2020-05-09] MEDS ORDERED: CIPR500 PO (12:13)
[2020-05-09] MEDS ORDERED: DOCU100 PO (12:13)
[2020-05-09] MEDS ORDERED: VISBIOME PROBIOTIC PO (12:13)
[2020-05-09] MEDS ORDERED: HUMALOG KW100 UNIT/1 SC (12:14)
[2020-05-09] MEDS ORDERED: FERSU300 PO (12:14)
--- NOTE | 2020-05-09 19:15 | NUR ---
SHIFT SUMMARY PT UP TO BATHROOM WITH 1 PERSON ASSIST USING FWW AND GAIT BELT. PT FOLLOWING TOE TOUCH WT BEARING ACCORDING TO HER DISCHARGE INSTRUCTIONS OF 05/06/20. DRESSING CHANGED TO L HIP WITH BRUISING TO SITE AND NO ACTIVE DRAINAGE. REPORTED AT 1830 SHES HAD A HEADACHE ALL DAY. TYLENOL GIVEN AND IMITREX ORDERED FROM PHARMACY TO GIVE. PLANS FOR DISCHARGE TO SNF TOMORROW.
--- NOTE | 2020-05-10 04:03 | NUR ---
SHIFT SUMMARY: PT A&OX4. VS WNL T/O SHIFT. AQUACEL DRESSING TO LEFT HIP C/D/I WITH A SCANT AMOUNT OF BLOODY DRG. BRUISING AND SWELLING NOTED TO LEFT HIP/THIGH. PT REPORTING PAIN IS TOLERABLE. MEDICATED WITH IMITREX IN BEGINNING OF SHIFT FOR C/O A HEADACHE WHICH HAS NOW RESOLVED. PT ENCOURAGED TO USE BATHROOM OR BEDSIDE COMMODE TO VOID, HOWEVER IS WANTING TO USE BEDPAN. VOIDING WELL. PLAN FOR PT TO DISCHARGE TO SNF TODAY.
[2020-05-10] MEDS ORDERED: METO50ER PO (11:04)
--- NOTE | 2020-05-10 11:17 | NUR ---
PT HR RAPID, IRREGULAR AND DIFFICULT TO COUNT APICALLY THIS MORNING. NOTIFIED MD OF HR. SEE NEW ORDERS. REPORTED FEELING DIZZY AND NOT WELL WELL APPEARING MORE PALE THAN YESTERDAY. DECREASED APPETITE FROM YESTERDAY TOO. METOPROLOL GIVEN AND HR NOW MORE STEADY BUT IN THE 120'S. MD NOTIFIED AGAIN.
--- NOTE | 2020-05-10 13:32 | NUR ---
PT HAS RECEIVED DILTIAZEM IV ONCE AND HR REDUCED TO LOW 100'S. GRAYISH/PALE. NO APPTITE AT THIS TIME. JUST AFTER LEAVING ROOM CALLED ANVIL SEATING PRESS OPERATOR AND PT HAD A 3.38 SEC PAUSE FOLLOWED BY A JUNCTIONAL RHYTHM THEN A 1.7 SEC PAUSE AND BACK INTO AFIB. NO S/S DURING EVENT BEYOND WHAT IS ALREADY DOCUMENTED. WAS SPEAKING WITH TELEGRAPH INSPECTOR AT THE TIME. WITHIN 5 MINUTES PT HAD ANOTHER 4.1 SECOND PAUSE AND BACK INTO AFIB. ANOTHER 5 MINUTES AND HAD ANOTHER 3.9 SECOND PAUSE WITH 2 BEATS AND THEN 1.8 SEC PAUSE AND BACK TO AFIB. SPOKE WITH MD ABOUT PT AFTER FIRST PAUSE ABOUT PTS CONDITION. MD REPORTS PLANNING ON PT STILL GOING TO SNF TODAY AT 1430. RATE HAS IMPROVED AT THIS TIME. IF SIGNIFICANT CHANGE AFTER BEING DISCHARGED CAN BE RETURNED TO EMERGANCY ROOM.
--- NOTE | 2020-05-10 14:30 | NUR ---
DR. GARCIA IN TO SEE PT AGAIN AND CANCELLED DISCHARGE TO SNF. CALLED DIMA WHOM I HAD GIVEN REPORT TO AND NOTIFIED HER TO CANCELLATION.
[2020-05-10 15:04] LABS: Hematocrit 26.9 % (33.0-51.0); Hemoglobin 9.2 g/dL (11.5-16.0); Mean Corpuscular HGB 33.9 pg (26.0-34.0); Mean Corpuscular HGB Conc 34.2 g/dL (31.5-36.5); Mean Corpuscular Volume 99 fL (80-100); Platelet Count 252 K/mm3 (150-400); RDW Coefficient Variation 12.6 % (11.7-14.2); RDW Standard Deviation 45.6 fL (35.1-46.3); Red Blood Cell Count 2.71 M/mm3 (3.80-5.20); White Blood Cell Count 11.49 K/mm3 (4.00-11.30)
[2020-05-10 15:30] LABS: Bun/Creatinine Ratio 12.5 (12.0-20.0); Calcium, Blood 8.5 mg/dL (8.5-10.1); Creatinine, Blood 1.04 mg/dL (0.40-1.00); Potassium, Blood 3.8 mmol/L (3.5-5.5)
--- NOTE | 2020-05-10 19:34 | NUR ---
SHIFT SUMMARY PT CONVERTED TO NSR ACCORDING TO RETURNED GOODS INSPECTOR APPROX 1615. PT COLORING IMPROVED. SAT ON SIDE OF BED TO EAT SUPPER AND ATE SUPPER. DID HAVE SOB WHILE IN AFIB WHICH IS RESOLVING WELL. REPORT GIVEN TO ONCOMING SHIFT.
--- NOTE | 2020-05-11 04:40 | NUR ---
SHIFT SUMMARY PT HAS RESTED WELL MOST OF THE NIGHT. HR NSR ON TELE WITH NO CHANGES OVERNIGHT. PT STRENGTH IS RETURNING BUT SHE STILL HAS PAIN WITH AMBULATION POST LEFT HIP REPAIR. VITALS ARE STABLE. ASSESSMENT UNCHANGED. BED IN LOWEST POSITION, CALL LIGHT WITHIN REACH.
--- NOTE | 2020-05-11 14:01 | NUR ---
DISCHARGE NOTE- PT DISCHARGED TO [facility], CALLED REPORT TO ACJENNIFER RN. LEFT CONTACT INFO IF QUESTIONS SHOULD ARRISE, NOT FURTHER QUESTIONS AT THE TIME OF REPORT. PT IV AND TELE DC'D PRIOR TO PT DISCHARGE. PT TAKEN VIA WC TRANSPORT TO [facility].
== END 2020-05-11 13:40 | DRG 872 ==
LOC: ER 20:38 → MEDS 23:57 → ENPENDDIS 05-09 12:10 → MEDS 05-09 16:08
PROVIDERS: Family Medicine; Internal Medicine; Student in an Organized Health Care Education/Training Program; ADMIT Internal Medicine
DX: A41.50 Gram-negative sepsis, unspecified (principal); E23.0 Hypopituitarism; E27.40 Unspecified adrenocortical insufficiency; E87.1 Hypo-osmolality and hyponatremia; N39.0 Urinary tract infection, site not specified; Z51.5 Encounter for palliative care; E11.9 Type 2 diabetes mellitus without complications; Z20.828 Contact with and (suspected) exposure to other viral communicable diseases; E78.5 Hyperlipidemia, unspecified; F17.210 Nicotine dependence, cigarettes, uncomplicated; F41.8 Other specified anxiety disorders; I10 Essential (primary) hypertension; I48.0 Paroxysmal atrial fibrillation; J44.9 Chronic obstructive pulmonary disease, unspecified; K21.9 Gastro-esophageal reflux disease without esophagitis; D50.9 Iron deficiency anemia, unspecified; G43.909 Migraine, unspecified, not intractable, without status migrainosus; Z85.118 Personal history of other malignant neoplasm of bronchus and lung; S72.92XD Unspecified fracture of left femur, subsequent encounter for closed fracture with routine healing; Z79.01 Long term (current) use of anticoagulants; E89.3 Postprocedural hypopituitarism
CPT/HCPCS: 0241U; 36415; 80048; 80053; 81001; 82728; 82947; 83540; 83550; 83605; 84295; 85025; 85027; 87040; 87077; 87086; 87186; 93005; 93010; 94640; 94760; 96361-59; 96365-59; 97110; 97161; 97166; 97530; 97535; 99284-25; A9270; A9270-GY; J0696; J0744; J1720; J2405; J7030; P9612

== ENCOUNTER → 2020-06-22 | Outpatient (CLI) | payer MEDICARE ==
[~2020-06-22] MED LIST changes: +CIPR500 PO; +DICY20 PO; +DIPATR PO; +DOCU100 PO; +FERSU300 PO; +HUMALOG KW100 UNIT/1 SC; +PANT40 PO; +PROBIOTIC1 EA13 PO; +SPIRIVA RESPIMAT4 G3 INH; +VANCOCIN HCL125 MG PO; +VISBIOME PROBIOTIC PO
== END | disposition home or self-care (01) ==
LOC: LAB 16:30
DX: R19.7 Diarrhea, unspecified (principal)
CPT/HCPCS: 87015; 87045; 87046; 87205; 87899

== ENCOUNTER 2020-06-27 16:21 | Inpatient (IN) | payer MEDICARE ==
[~2020-06-27] VITALS: Ht 170.2 cm; Wt 71.6 kg
[~2020-06-27 16:21] MED LIST changes: -DICY20 PO; -DIPATR PO; -PANT40 PO; -PROBIOTIC1 EA13 PO; -SPIRIVA RESPIMAT4 G3 INH; -VANCOCIN HCL125 MG PO
[2020-06-27 18:00] LABS: Calcium, Ionized (POC) 0.99 mmol/L (1.10-1.46); Chloride (POC) 101 mmol/L (98-108); Creatinine (POC) 1.1 mg/dL (0.6-1.0); Glucose (ISTAT POC) 131 mg/dL (70-99); Hemoglobin (POC) 13.3 g/dL (12.0-16.0); Potassium (POC) 2.6 mmol/L (3.5-5.5); Sodium (POC) 136 mmol/L (135-148); Total CO2 (POC) 21 mmol/L (21-32)
[2020-06-27 18:01] LABS: BASOPHILS PERCENT AUTO 1 % (0-2); EOSINOPHILS ABSOLUTE AUTO 0.03 K/mm3 (0.00-0.68); EOSINOPHILS PERCENT AUTO 0 % (0-6); Hemoglobin 13.7 g/dL (11.5-16.0); IMMATURE GRAN ABSOLUTE AUTO 0.12 K/mm3 (0.00-0.10); IMMATURE GRAN PERCENT AUTO 1 % (0-1); LYMPHOCYTES ABSOLUTE AUTO 2.58 K/mm3 (0.84-5.20); LYMPHOCYTES PERCENT AUTO 12 % (21-46); MONOCYTES ABSOLUTE AUTO 0.91 K/mm3 (0.16-1.47); MONOCYTES PERCENT AUTO 4 % (4-13); Mean Corpuscular HGB 31.2 pg (26.0-34.0); Mean Corpuscular HGB Conc 33.4 g/dL (31.5-36.5); Mean Corpuscular Volume 93 fL (80-100); Mean Platelet Volume 10.2 fL (9.1-12.4); NEUTROPHILS ABSOLUTE AUTO 17.64 K/mm3 (1.96-9.15); NEUTROPHILS PERCENT AUTO 82 % (41-73); Platelet Count 318 K/mm3 (150-400); RDW Coefficient Variation 15.5 % (11.7-14.2); RDW Standard Deviation 53.7 fL (35.1-46.3); Red Blood Cell Count 4.39 M/mm3 (3.80-5.20); White Blood Cell Count 21.38 K/mm3 (4.00-11.30)
[2020-06-27] MEDS ORDERED: SPIRIVA RESPIMAT4 G3 INH (18:44)
[2020-06-27 21:02] LABS: Alanine Aminotransfer (ALT/SGP 17 U/L (12-78); Albumin, Blood 2.3 g/dL (3.4-5.0); Albumin/Globulin Ratio 0.7 (0.8-1.8); Alk Phos 112 U/L (50-136); Anion Gap 10 mmol/L (6-16); Aspartate Aminotrans (AST/SGOT 20 U/L (12-37); Bilirubin, Total 0.5 mg/dL (0.1-1.0); Blood Urea Nitrogen 6 mg/dL (8-24); Bun/Creatinine Ratio 5.8 (12.0-20.0); CO2, Blood 19 mmol/L (21-32); Calcium, Blood 7.6 mg/dL (8.5-10.1); Chloride, Blood 109 mmol/L (98-108); Creatinine, Blood 1.04 mg/dL (0.40-1.00); Globulin, Blood 3.4 g/dL (2.2-4.0); Glomerular Filtration Rate 56 (60-); Glucose, Blood 133 mg/dL (70-99); Potassium, Blood 2.5 mmol/L (3.5-5.5); Sodium, Blood 138 mmol/L (136-145); Total Protein, Blood 5.7 g/dL (6.4-8.2); Troponin I <0.015 ng/mL (0.000-0.040)
[2020-06-27 21:21] LABS: Hematocrit 38.5 % (33.0-51.0); Hemoglobin 12.9 g/dL (11.5-16.0)
[2020-06-27 23:04] LABS: C DIFFICILE DNA Positive (Negative)
--- NOTE | 2020-06-27 23:30 | NUR ---
PHYSICIAN NOTIFIED PHYSICIAN NOTIFIED OF CRITICAL LACTIC ACID LEVEL. ORDERS PROVIDED FOR SEPSIS BOLUS.
[2020-06-28 00:33] LABS: Influenza A, PCR Negative (NEGATIVE); Influenza B, PCR Negative (NEGATIVE); Resp Syncytial Virus, PCR Negative (NEGATIVE); SARS-Cov-2 (COVID-19) PCR, MMC Negative (NEGATIVE)
[2020-06-28 04:44] LABS: Hematocrit 32.8 % (33.0-51.0); Hemoglobin 10.8 g/dL (11.5-16.0); Mean Corpuscular HGB 31.3 pg (26.0-34.0); Mean Corpuscular HGB Conc 32.9 g/dL (31.5-36.5); Mean Corpuscular Volume 95 fL (80-100); Mean Platelet Volume 9.9 fL (9.1-12.4); Platelet Count 234 K/mm3 (150-400); RDW Coefficient Variation 15.8 % (11.7-14.2); RDW Standard Deviation 54.6 fL (35.1-46.3); Red Blood Cell Count 3.45 M/mm3 (3.80-5.20); White Blood Cell Count 12.57 K/mm3 (4.00-11.30)
[2020-06-28 05:03] LABS: Anion Gap 8 mmol/L (6-16); Blood Urea Nitrogen 4 mg/dL (8-24); Bun/Creatinine Ratio 4.1 (12.0-20.0); CO2, Blood 21 mmol/L (21-32); Chloride, Blood 113 mmol/L (98-108); Creatinine, Blood 0.97 mg/dL (0.40-1.00); Glomerular Filtration Rate >60 (60-); Glucose, Blood 91 mg/dL (70-99); Potassium, Blood 3.2 mmol/L (3.5-5.5); Sodium, Blood 142 mmol/L (136-145)
--- NOTE | 2020-06-28 06:21 | NUR ---
SHIFT SUMMARY PT ALERT AND ORIENTED X 4. HR STABLE. BP STABLE. OXYGEN SATURATION MAINTAINED ABOVE 95% ON RA. COCCYX RED WITH SMALL ULCER. PICTURE TAKEN, SEE CHART. MEPLEX IN PLACE. PT ABLE TO TURN SELF IN BED NEEDED. PHYSICIAN NOTIFIED OF CRITICAL LAB VALUES, SEE CHART. SEPSIS BOLUS ORDERED AND GIVEN PER PHYSICIAN.WILL CONTINUE TO MONITOR UNTIL REPORT GIVEN TO DAYSHIFT RN.
--- NOTE | 2020-06-28 16:00 | NUR ---
UPDATE PT TAKEN TO DAY SURGERY FOR PROCEDURE. WILL AWAIT RETURN.
--- NOTE | 2020-06-28 16:17 | NUR ---
PT TRANSVERED TO [facility] FROM FLOOR VIA GURNEY. History, Chart, Medications and Allergies reviewed before start of procedure. Lungs clear T/O to Auscultation. Patient confirms NPO status and agrees with scheduled surgery. Pre-Op teaching done. Pt verbalizes understanding.
--- NOTE | 2020-06-28 16:38 | NUR ---
06/28/20 1638 TOM ROBINS History, Chart, Medications and Allergies reviewed before start of procedure. 3-LEAD EKG REVIEWED WITH PHYSICIAN PRIOR TO START OF PROCEDURE. O2 VIA N/C INTACT THROUGHOUT SEDATION/PROCEDURE. MONITOR INTACT WITH CONTINUOUS PULSE OXIMETRY AND INTERMITTENT BP. PATIENT DETERMINED TO BE ASA APPROPRIATE FOR PROPOFOL SEDATION PRIOR TO START OF PROCEDURE BY DR. PALACIO.
--- NOTE | 2020-06-28 17:30 | NUR ---
UPDATE PT RETURNED FROM PROCEDURE. VS STABLE. O2 SATS REMAIN ABOVE 90% ON RA. HR NSR TO SINUS TACH. PT DENIES ANY PAIN. WILL CONTINUE TO MONITOR CLOSELY.
--- NOTE | 2020-06-28 17:56 | NUR ---
SHIFT SUMMARY PT ALERT AND ORIENTED. VS STABLE. PT DENIES ANY PAIN. PT HAVING FREQUENT LOOSE BROWN INCONTINENT STOOL. ATTENDS IN PLACE AND DRY AT THIS TIME. PT REPOSITIONED Q2H AND MEPILEX PLACED ON COCCYX TO PREVENT PRESSURE ULCER. PT AWAITING DINNER TRAY AT THIS TIME. WILL CONTINUE TO MONITOR AND REPORT TO ONCOMING RN. CALL LIGHT IN REACH. PT CALLS APPROPRIATELY.
[2020-06-29 04:31] LABS: Hematocrit 29.2 % (33.0-51.0); Hemoglobin 9.7 g/dL (11.5-16.0); Mean Corpuscular HGB 31.6 pg (26.0-34.0); Mean Corpuscular HGB Conc 33.2 g/dL (31.5-36.5); Mean Corpuscular Volume 95 fL (80-100); Mean Platelet Volume 9.8 fL (9.1-12.4); Platelet Count 206 K/mm3 (150-400); RDW Coefficient Variation 15.9 % (11.7-14.2); RDW Standard Deviation 55.6 fL (35.1-46.3); Red Blood Cell Count 3.07 M/mm3 (3.80-5.20); White Blood Cell Count 7.73 K/mm3 (4.00-11.30)
[2020-06-29 04:49] LABS: Anion Gap 7 mmol/L (6-16); Blood Urea Nitrogen 3 mg/dL (8-24); Bun/Creatinine Ratio 3.2 (12.0-20.0); CO2, Blood 22 mmol/L (21-32); Calcium, Blood 7.5 mg/dL (8.5-10.1); Chloride, Blood 111 mmol/L (98-108); Creatinine, Blood 0.94 mg/dL (0.40-1.00); Glomerular Filtration Rate >60 (60-); Glucose, Blood 84 mg/dL (70-99); Potassium, Blood 2.7 mmol/L (3.5-5.5); Sodium, Blood 140 mmol/L (136-145)
--- NOTE | 2020-06-29 06:25 | NUR ---
SHIFT SUMMARY PT ALERT AND ORIENTED X 4. HR STABLE. BP STABLE. PT REPORTS NO CP OR PRESSURE. PHYSICIAN NOTIFIED OF LOW K+ LEVEL THIS AM. ORDERS PROVIDED PER PHYSICIAN AND GIVEN PER EMAR. COCCYX RED. BARRIER CREAM APPLIED. OXYGEN SATURATION MAINTAINED ABOVE 92% ON RA. PT UP TO RECLINER AT END OF SHIFT. 1 PERSON ASSIST WITH WALKER. PT ABLE TO TURN SELF IN BED NEEDED. INCONTINENT AT TIMES. DEPENDS IN PLACE. WILL CONTINUE TO MONITOR UNTIL REPORT GIVEN TO YASMIN RN.
--- NOTE | 2020-06-29 16:24 | NUR ---
REPORT GIVEN TO GEOVANNY WAYNE ON MEDICAL.
--- NOTE | 2020-06-29 18:42 | NUR ---
SHIFT SUMMARY PT ARRIVED 445PM FROM PCU. HAD ONE BM SINCE ARRIVAL, FULLY CONTINENT. EXCORIATED BUTTOCKS AREA FROM FREQUENT STOOL, CALAZIME APPLIED. AO1 TO BSC, CALLED APPROPRIATELY. POTASSIUM REPLACED. CALL LIGHT IN REACH, WCTM
--- NOTE | 2020-06-30 04:14 | NUR ---
SHIFT SUMMARY: VSS. AFEB. AAOX4. COMMUNICATES NEEDS. CONT W/ FREQUENT SMALL LIQUID, JELLY-CONSISTENCY BM'S. APPEAR GREEN IN COLOR W/ DARK GREEN OR BLACK FLECKS. REPORTS ONGOING RLQ TENDERNESS W/ PALPATION. DENIES N/V. T/F TO BSC W/ 1 ASSIST. DENIES PAIN. TAKING PO FLUIDS WELL. NO ACUTE CONCERNS OVERNIGHT. WCTM.
[2020-06-30 05:43] LABS: Hematocrit 30.1 % (33.0-51.0); Hemoglobin 9.8 g/dL (11.5-16.0); Mean Corpuscular HGB 31.3 pg (26.0-34.0); Mean Corpuscular HGB Conc 32.6 g/dL (31.5-36.5); Mean Corpuscular Volume 96 fL (80-100); Platelet Count 212 K/mm3 (150-400); RDW Coefficient Variation 15.8 % (11.7-14.2); RDW Standard Deviation 55.8 fL (35.1-46.3); Red Blood Cell Count 3.13 M/mm3 (3.80-5.20); White Blood Cell Count 6.22 K/mm3 (4.00-11.30)
[2020-06-30 06:11] LABS: Anion Gap 10 mmol/L (6-16); Blood Urea Nitrogen 2 mg/dL (8-24); Bun/Creatinine Ratio 2.1 (12.0-20.0); CO2, Blood 22 mmol/L (21-32); Calcium, Blood 7.7 mg/dL (8.5-10.1); Chloride, Blood 110 mmol/L (98-108); Creatinine, Blood 0.93 mg/dL (0.40-1.00); Glomerular Filtration Rate >60 (60-); Glucose, Blood 84 mg/dL (70-99); Sodium, Blood 142 mmol/L (136-145)
--- NOTE | 2020-06-30 17:03 | NUR ---
SHIFT SUMMARY PT IS AOX4. PT DENIES PAIN, N/V, SOB. PT CONTINUES TO HAVE DIARRHEA X3 THIS SHIFT. PT IS ONE PERSON SBA IN ROOM TODAY. PT WORKED WITH PT/OT TODAY. PLAN IS TO DC AFTER 3 OR LESS BM'S PER DAY, POTENTIALLY TOMORROW. PT CONTACT [facility] PRECUATIONS MAINTAINED THROUGHOUT SHIFT. PT HAD NO VISITORS TODAY. PT IS IN BED, CALL LIGHT IN REACH, BED IN LOW POSITION.
--- NOTE | 2020-07-01 04:25 | NUR ---
SHIFT SUMMARY: VSS. AFEB. AAOX4. COMMUNICATES NEEDS APPROPRIATELY. UP INDEPENDENTLY TO BSC. 1 SMALL CLEAR MUCOUS IN COMMODE BUT OTHERWISE NO STOOL OBSERVED TONIGHT. CONT W/ RLQ ABD TENDERNESS. DENIES N/V. MED X 1 FOR ARITA AND LOW BACKACHE TONIGHT EFFECTIVELY. NO ACUTE OVERNIGHT CHANGES. WCTM.
[2020-07-01 05:54] LABS: Anion Gap 9 mmol/L (6-16); Blood Urea Nitrogen 2 mg/dL (8-24); Bun/Creatinine Ratio 2.2 (12.0-20.0); CO2, Blood 22 mmol/L (21-32); Calcium, Blood 7.1 mg/dL (8.5-10.1); Chloride, Blood 108 mmol/L (98-108); Glomerular Filtration Rate >60 (60-); Glucose, Blood 74 mg/dL (70-99); Potassium, Blood 3.2 mmol/L (3.5-5.5); Sodium, Blood 139 mmol/L (136-145)
[2020-07-01] MEDS ORDERED: VANCOCIN HCL125 MG PO (15:02)
[2020-07-01] MEDS ORDERED: PROBIOTIC1 EA13 PO (15:03)
[2020-07-01] MEDS ORDERED: PANT40 PO (15:04)
--- NOTE | 2020-07-01 15:41 | NUR ---
DISCHARGE NOTE- PT WAS GIVEN VERBAL AND WRITTEN DISCHARGEINSTRUCTIONS AND ACKNOWLEDGED UNDERSTANDING OF THEM. PT IV DC'D PRIOR TO DISCHARGE. PT ESCORTED OUT VIA WC BY THE DRIVER GUARD. NO S&S OF DISTRESS NOTED AT THE TIME OF DISCHARGE.
== END 2020-07-01 15:33 | disposition home or self-care (01) | DRG 872 ==
LOC: ER 16:21 → PCU 19:46 → MEDS 06-29 16:36 → ENPENDDIS 07-01 15:22 → MEDS 07-01 15:33
PROVIDERS: Emergency Medicine; Internal Medicine Gastroenterology; Physician Assistant; ADMIT Internal Medicine
PROC: 0DJ08ZZ Inspection of Upper Intestinal Tract, Via Natural or Artificial Opening Endoscopic (ICD-10-PCS; principal; 2020-06-28 16:30)
DX: A41.9 Sepsis, unspecified organism (principal); A04.72 Enterocolitis due to Clostridium difficile, not specified as recurrent; E23.0 Hypopituitarism; K22.10 Ulcer of esophagus without bleeding; E87.6 Hypokalemia; E03.9 Hypothyroidism, unspecified; Z79.01 Long term (current) use of anticoagulants; K21.9 Gastro-esophageal reflux disease without esophagitis; D50.9 Iron deficiency anemia, unspecified; E78.5 Hyperlipidemia, unspecified; F17.210 Nicotine dependence, cigarettes, uncomplicated; I48.0 Paroxysmal atrial fibrillation; F41.8 Other specified anxiety disorders; G43.809 Other migraine, not intractable, without status migrainosus; E11.22 Type 2 diabetes mellitus with diabetic chronic kidney disease; I12.9 Hypertensive chronic kidney disease with stage 1 through stage 4 chronic kidney disease, or unspecified chronic kidney disease; N18.30 Chronic kidney disease, stage 3 unspecified; Z79.4 Long term (current) use of insulin; K44.9 Diaphragmatic hernia without obstruction or gangrene
CPT/HCPCS: 0241U; 36415; 71046; 80047; 80048; 80053; 82947; 83605; 83690; 84132; 84484; 85014; 85018; 85025; 85027; 86850; 86900; 86901; 87040; 87324; 87493; 93005; 93010; 94640; 94760; 96365; 96368; 96375; 99285-25; A9270; J0610; J2250; J2405; J2704; J3475; J3480; J7030; J7050; J7120

== ENCOUNTER 2020-07-25 18:12 | Inpatient (IN) | payer MEDICARE ==
[~2020-07-25] VITALS: Ht 170.2 cm; Wt 78.9 kg
[~2020-07-25 18:12] MED LIST changes: +PANT40 PO; +PROBIOTIC1 EA13 PO; +SPIRIVA RESPIMAT4 G3 INH; +VANCOCIN HCL125 MG PO
[2020-07-25 18:33] LABS: BASOPHILS ABSOLUTE AUTO 0.11 K/mm3 (0.00-0.23); BASOPHILS PERCENT AUTO 1 % (0-2); EOSINOPHILS ABSOLUTE AUTO 0.12 K/mm3 (0.00-0.68); EOSINOPHILS PERCENT AUTO 1 % (0-6); Hemoglobin 13.3 g/dL (11.5-16.0); Mean Corpuscular HGB 31.4 pg (26.0-34.0); Mean Corpuscular Volume 90 fL (80-100); Mean Platelet Volume 9.8 fL (9.1-12.4); Platelet Count 353 K/mm3 (150-400); RDW Coefficient Variation 17.1 % (11.7-14.2); RDW Standard Deviation 55.8 fL (35.1-46.3); Red Blood Cell Count 4.24 M/mm3 (3.80-5.20); White Blood Cell Count 19.22 K/mm3 (4.00-11.30)
[2020-07-25 18:37] LABS: IMMATURE GRAN PERCENT AUTO 1 % (0-1); LYMPHOCYTES ABSOLUTE AUTO 4.19 K/mm3 (0.84-5.20); LYMPHOCYTES PERCENT AUTO 22 % (21-46); MONOCYTES ABSOLUTE AUTO 0.93 K/mm3 (0.16-1.47); MONOCYTES PERCENT AUTO 5 % (4-13); NEUTROPHILS ABSOLUTE AUTO 13.77 K/mm3 (1.96-9.15); NEUTROPHILS PERCENT AUTO 72 % (41-73)
[2020-07-25 18:58] LABS: Troponin I <0.015 ng/mL (0.000-0.040)
[2020-07-25 18:59] LABS: Alanine Aminotransfer (ALT/SGP 11 U/L (12-78); Albumin, Blood 1.8 g/dL (3.4-5.0); Albumin/Globulin Ratio 0.6 (0.8-1.8); Alk Phos 120 U/L (50-136); Anion Gap 8 mmol/L (6-16); Aspartate Aminotrans (AST/SGOT 16 U/L (12-37); Bilirubin, Total 0.7 mg/dL (0.1-1.0); Blood Urea Nitrogen 9 mg/dL (8-24); Bun/Creatinine Ratio 8.5 (12.0-20.0); CO2, Blood 27 mmol/L (21-32); Chloride, Blood 99 mmol/L (98-108); Creatinine, Blood 1.06 mg/dL (0.40-1.00); Glomerular Filtration Rate 55 (60-); Glucose, Blood 103 mg/dL (70-99); Potassium, Blood 2.1 mmol/L (3.5-5.5); Sodium, Blood 134 mmol/L (136-145); Total Protein, Blood 4.8 g/dL (6.4-8.2)
[2020-07-25 19:54] LABS: Source, Urine Clean Catch
[2020-07-25 19:59] LABS: Appearance, Urine Clear (Clear); Bilirubin, Urine Neg (Neg); Blood, Urine 1+ (Neg); Color, Urine Yellow (P-Yellow); Glucose Qualitative, Urine Neg (Neg); Ketones, Urine 1+ (Neg); Leukocyte Esterase, Urine 3+ (Neg); Nitrite, Urine Neg (Neg); Protein, Urine Neg (Neg); Urobilinogen, Urine NORM (Normal); pH, Urine 6.5 (5.0-8.0)
[2020-07-25 20:08] LABS: Magnesium, Blood 2.2 mg/dL (1.6-2.4)
[2020-07-25 20:13] LABS: Bacteria Few /hpf; Red Blood Cells, Urine 0-2 /hpf (0-2); Squamous Epithelial Cells Not Seen /hpf (Few); Transitional Epithelial Cells Few /hpf (0-Rare); White Blood Cells, Urine 50-100 /hpf (0-5)
[2020-07-25 22:05] LABS: Free Thyroxine 0.72 ng/dL (0.70-1.60)
[2020-07-25 22:06] LABS: Thyroid Stimulating Hormone 0.307 uIU/mL (0.360-4.800)
--- NOTE | 2020-07-26 01:04 | NUR ---
ADMIT NOTE PATIENT ADMITTED EARLIER THIS SHIFT. PATIENT PLEASENT BUT VERY TIRED AND READY TO GET SOME SLEEP. PATIENT SLID OVER FROM THE GURNEY TO THE BED VIA SLIDER SHEET. PATIENT REPORTS FEELING VERY WEAK AND DIZZY WHEN SHE STANDS UP. PATIENT SETTLED IN AND ORIETNED TO THE ROOM, UNIT, AND CALL LIGHT. PATIENT VERBALIZES UNDERSTANDING TO USE THE CALL LIGHT TO CALL STAFF BEFORE GETTING UP. PATIENT PROVIDED WITH A SNACK PER REQUEST. PATIENT SETTLED IN AND HAS BEEN ATTEMPTING TO REST. PATIENT CURRENTLY APPEARS TO BE ASLEEP, RESPIRATIONS EVEN AND UNLABORED.
--- NOTE | 2020-07-26 01:07 | NUR ---
IV ACCESS PATIENT CURRENTLY DECLINING TO HAVE A SECOND IV PLACED STATING, "I'VE BEEN POKED TOO MANY TIMES TONIGHT."
--- NOTE | 2020-07-26 06:52 | NUR ---
SHIFT SUMMARY PATIENT PLEASENT THIS MORNING. PATIENT STATING SHE WOULD BE WILLING TO HAVE A LINE PLACED IF IT COULD DRAW BLOOD TOO AND SAVE HER "SEVERAL POKES." PATIENT STATED, "I JUST FELT LIKE A PIN CUSHION LAST NIGHT." PATIENT SITTING UP IN BED THIS MORNING WATCHING TV AND DRINKING COFFEE. FLUIDS RUNNING PER ORDERS, VITAL SIGNS CHARTED. CALLED TO CHECK ON PATIENT THIS MORNING. WILL CONTINUE CURRENT PLAN OF CARE AND REPORT TO ONCOMING RN.
[2020-07-26 08:48] LABS: BASOPHILS ABSOLUTE AUTO 0.01 K/mm3 (0.00-0.23); BASOPHILS PERCENT AUTO 0 % (0-2); EOSINOPHILS PERCENT AUTO 0 % (0-6); Hematocrit 28.2 % (33.0-51.0); Hemoglobin 9.9 g/dL (11.5-16.0); IMMATURE GRAN ABSOLUTE AUTO 0.08 K/mm3 (0.00-0.10); IMMATURE GRAN PERCENT AUTO 1 % (0-1); LYMPHOCYTES ABSOLUTE AUTO 0.96 K/mm3 (0.84-5.20); LYMPHOCYTES PERCENT AUTO 6 % (21-46); MONOCYTES PERCENT AUTO 2 % (4-13); Mean Corpuscular HGB 31.7 pg (26.0-34.0); Mean Corpuscular HGB Conc 35.1 g/dL (31.5-36.5); Mean Corpuscular Volume 90 fL (80-100); Mean Platelet Volume 10.3 fL (9.1-12.4); NEUTROPHILS ABSOLUTE AUTO 15.86 K/mm3 (1.96-9.15); NEUTROPHILS PERCENT AUTO 92 % (41-73); Platelet Count 276 K/mm3 (150-400); RDW Coefficient Variation 16.8 % (11.7-14.2); RDW Standard Deviation 54.8 fL (35.1-46.3); Red Blood Cell Count 3.12 M/mm3 (3.80-5.20); White Blood Cell Count 17.31 K/mm3 (4.00-11.30)
[2020-07-26 09:03] LABS: Albumin, Blood 2.1 g/dL (3.4-5.0); Albumin/Globulin Ratio 0.9 (0.8-1.8); Bilirubin, Total 0.6 mg/dL (0.1-1.0); Bun/Creatinine Ratio 6.5 (12.0-20.0); Calcium, Blood 6.7 mg/dL (8.5-10.1); Creatinine, Blood 1.07 mg/dL (0.40-1.00); Globulin, Blood 2.4 g/dL (2.2-4.0); Potassium, Blood 2.8 mmol/L (3.5-5.5); Total Protein, Blood 4.5 g/dL (6.4-8.2)
[2020-07-26 12:52] LABS: Bun/Creatinine Ratio 5.8 (12.0-20.0); Calcium, Blood 6.8 mg/dL (8.5-10.1); Creatinine, Blood 1.04 mg/dL (0.40-1.00)
[2020-07-26 13:52] LABS: C DIFFICILE DNA POSITIVE (Negative)
--- NOTE | 2020-07-26 18:10 | NUR ---
SHIFT SUMMARY NO ACUTE EVENTS THIS SHIFT, VSS. PATIENT ALERT AND ORIENTED, COOPERATIVE WITH CARE. BP REMAINS LOW CONSISTENTLY THROUGH SHIFT, DR. CHRISTINA AND DR. BENITO NOTIFIED DURING PHYSICIAN ROUNDS, MAP REMAINS ABOVE 60 THIS SHIFT. LACTIC ACID ELEVATED, 2 L BOLUS GIVEN, MAINTENANCE FLUIDS INCREASED TO 125 NS ML/HR. PATIENT COMPLAINED OF DIZZINESS WITH REPOSITIONING IN BED, OTHERWISE NO COMPLAINTS. K+ REPLACED THROUGHOUT SHIFT, IV AND PO. PATIENT CONTINUED TO HAVE LOOSE/LIQUID STOOL THROUGH SHIFT, BUT NEG. FOR C DIF TOXINS.
[2020-07-27 04:09] LABS: BASOPHILS ABSOLUTE AUTO 0.02 K/mm3 (0.00-0.23); BASOPHILS PERCENT AUTO 0 % (0-2); EOSINOPHILS PERCENT AUTO 0 % (0-6); Hematocrit 23.7 % (33.0-51.0); Hemoglobin 8.1 g/dL (11.5-16.0); IMMATURE GRAN ABSOLUTE AUTO 0.13 K/mm3 (0.00-0.10); IMMATURE GRAN PERCENT AUTO 1 % (0-1); LYMPHOCYTES ABSOLUTE AUTO 1.31 K/mm3 (0.84-5.20); LYMPHOCYTES PERCENT AUTO 7 % (21-46); MONOCYTES ABSOLUTE AUTO 0.39 K/mm3 (0.16-1.47); MONOCYTES PERCENT AUTO 2 % (4-13); Mean Corpuscular HGB 31.4 pg (26.0-34.0); Mean Corpuscular HGB Conc 34.2 g/dL (31.5-36.5); Mean Corpuscular Volume 92 fL (80-100); Mean Platelet Volume 10.2 fL (9.1-12.4); NEUTROPHILS PERCENT AUTO 90 % (41-73); Platelet Count 200 K/mm3 (150-400); RDW Coefficient Variation 17.2 % (11.7-14.2); Red Blood Cell Count 2.58 M/mm3 (3.80-5.20); White Blood Cell Count 18.55 K/mm3 (4.00-11.30)
[2020-07-27 04:27] LABS: Anion Gap 7 mmol/L (6-16); Blood Urea Nitrogen 4 mg/dL (8-24); Bun/Creatinine Ratio 4.2 (12.0-20.0); CO2, Blood 20 mmol/L (21-32); Chloride, Blood 112 mmol/L (98-108); Creatinine, Blood 0.95 mg/dL (0.40-1.00); Glomerular Filtration Rate >60 (60-); Glucose, Blood 124 mg/dL (70-99); Potassium, Blood 3.3 mmol/L (3.5-5.5); Sodium, Blood 139 mmol/L (136-145)
--- NOTE | 2020-07-27 05:51 | NUR ---
SHIFT SUMMARY NO ACUTE CHANGES THIS SHIFT. VSS / HOTN PERSISTS BUT MAP >65 AND PT ASYMPTOMATIC CURRENTLY. REMAINS AXO. IN SR. ON RA. DIARRHEA REMAINS, XMULTIPLE MOVEMENTS. PG REMAINS PATENT AND PULLS WELL. NS INFUSING PER EMAR. SKIN TEAR TO COCCYX STABLE AT THIS TIME. MEPILEX AND MEDICATED CREAM APPLIED. PT BEING TURNED BY STAFF. PT REMAINS IN CONTACT ISOLATION FOR CDIFF. OTHERWISAE, PT USES CALL LIGHT APPROPRIATELY. WILL CONTINUE TO MONITOR UNTIL SHIFT CHANGE.
[2020-07-27 13:05] LABS: Stool Occult Bld Immuno 1 Negative (NEGATIVE)
[2020-07-27 14:05] LABS: Adenovirus F 40/41 Not Detected (NOT DETECT); Astrovirus Not Detected (NOT DETECT); Campylobacter Sp Not Detected (NOT DETECT); Cryptosporidium Not Detected (NOT DETECT); Cyclospora Cayetanensis Not Detected (NOT DETECT); E. Coli O157 Not Detected (NOT DETECT); Entamoeba Histolytica Not Detected (NOT DETECT); Enteroaggregative E. coli-EAEC Not Detected (NOT DETECT); Enteropathogenic E. coli-EPEC Not Detected (NOT DETECT); Enterotoxigenic E. coli-ETEC Not Detected (NOT DETECT); Giardia Lamblia Not Detected (NOT DETECT); Norovirus GI/GII Not Detected (NOT DETECT); Plesiomonas Shigelloides Not Detected (NOT DETECT); Rotavirus A Not Detected (NOT DETECT); Salmonella Sp Not Detected (NOT DETECT); Sapovirus Not Detected (NOT DETECT); Shiga Toxin-prod E. coli-STEC Not Detected (NOT DETECT); Shigella/Enteroin E. coli-EIEC Not Detected (NOT DETECT); Vibrio Cholerae Not Detected (NOT DETECT); Vibrio Sp Not Detected (NOT DETECT); Yersinia Enterocolitica Not Detected (NOT DETECT)
[2020-07-27 15:00] LABS: IMMATURE RETIC FRACTION 18.9 % (2.3-16.0); RETIC HGB EQUIVALENT 38.6 pg (28.20-36.60); RETICULOCYTE COUNT PERCENT 1.54 % (0.50-2.50)
--- NOTE | 2020-07-27 19:15 | NUR ---
SHIFT SUMMARY NO ACUTE EVENTS THIS SHIFT. PATIENT ALERT AND ORIENTED, COOPERATIVE WITH CARE. PATIENT REMAINS HYPOTENSIVE THIS SHIFT, DISCUSSED WITH PHYSICIANS DURING ROUNDING. X2 1 L FLUID BOLUSES GIVEN LACTIC ACID IMPROVED DOWN TO 3.9 FROM 4.0. PATIENT REMAINS ON ROOM AIR, DENIES PAIN THIS SHIFT. IV STEROIDS CONTINUED, CBG COVERED PER EMAR. DIARRHEA CONTINUED TODAY, IMODIUM STARTED.
--- NOTE | 2020-07-28 05:20 | NUR ---
SHIFT SUMMARY NO ACUTE CHANGES THIS SHIFT. PT REMAINS AXO. IN SR WITH STABLE HOTN SHOWN IMPROVEMENT. ON RA. DIARRHEA MUCH LESSENED THIS SHIFT WHEN COMPARED WITH PREVIOUS NOC SHIFT. FLUIDS CONTINUE TO INFUSE PER EMAR. POWERGLIDE REMAINS PATENT AND DRAINING. COCCYX RED BUT NOT INFLAMED LAST NOC. OTHERWISE, PT RESTING OFF AND ON T/O NIGHT. WILL CONTINUE TO MONITOR UNTIL SHIFT CHANGE.
[2020-07-28 05:33] LABS: Anion Gap 7 mmol/L (6-16); Blood Urea Nitrogen 6 mg/dL (8-24); Bun/Creatinine Ratio 6.3 (12.0-20.0); CO2, Blood 20 mmol/L (21-32); Calcium, Blood 7.4 mg/dL (8.5-10.1); Chloride, Blood 115 mmol/L (98-108); Creatinine, Blood 0.96 mg/dL (0.40-1.00); Glomerular Filtration Rate >60 (60-); Glucose, Blood 131 mg/dL (70-99); Potassium, Blood 3.5 mmol/L (3.5-5.5); Sodium, Blood 142 mmol/L (136-145)
--- NOTE | 2020-07-28 18:09 | NUR ---
SHIFT SUMMARY NO ACUTE EVENTS THIS SHIFT, VSS. PATIENT'S BLOOD PRESSURE CONTINUES TO IMPROVE THIS SHIFT, LOWEST BP OF 99/58. PATIENT IS ALERT AND ORIENTED, COOPERATIVE WITH CARE. PATIENT WAS UP TO CHAIR WITH PHYSICAL THERAPY USING WALKER TODAY, TOLERATED WELL. PT TO CONTINUE IN ORDER TO IMPROVE FUNCTIONAL STATUS.
[2020-07-29 04:46] LABS: Bun/Creatinine Ratio 7.1 (12.0-20.0); Calcium, Blood 7.9 mg/dL (8.5-10.1); Creatinine, Blood 0.99 mg/dL (0.40-1.00); Potassium, Blood 2.6 mmol/L (3.5-5.5)
--- NOTE | 2020-07-29 05:44 | NUR ---
SHIFT SUMMARY NO ACUTE CHANGES THIS SHIFT. VSS. HOTN CONTINUES TO IMPROVE, DESPITE NO FLUIDS INFUSING ORDERED. PT REMAINS IN SR. ON RA. DIARRHEA LESSENING. SKIN TEAR CONTINUES TO IMPROVE TO SACRAL AREA. POWERGLIDE CONTINUES TO PULL BLOOD EASILY. MARQUES LCONTINUE TO MONITOR UNTIL SHIFT CHANGE.
[2020-07-29 06:55] LABS: Albumin, Blood 1.7 g/dL (3.4-5.0); Albumin/Globulin Ratio 0.7 (0.8-1.8); Bilirubin, Total 0.3 mg/dL (0.1-1.0); Bun/Creatinine Ratio 6.1 (12.0-20.0); Calcium, Blood 7.7 mg/dL (8.5-10.1); Creatinine, Blood 0.98 mg/dL (0.40-1.00); Globulin, Blood 2.3 g/dL (2.2-4.0); Potassium, Blood 2.3 mmol/L (3.5-5.5)
--- NOTE | 2020-07-29 10:39 | NUR ---
UPDATE DR. CHRISTINA CALLED AND NOTIFIED OF ORTHOSTATIC BP.
--- NOTE | 2020-07-29 15:26 | NUR ---
UPDATE THERAPY IN TO SEE PT AND BLOOD PRESSURE OF 80/49 WHILE PT LAYING FLAT. PT ASYMPTOMATIC AT THIS TIME. DR. CHRISTINA CALLED AND NOTIFED. ORDERS TO RECHECK BP IN 1 HOUR. WILL CONTINUE TO MONITOR CLOSELY.
[2020-07-29 15:43] LABS: Bun/Creatinine Ratio 5.8 (12.0-20.0); Calcium, Blood 8.3 mg/dL (8.5-10.1); Creatinine, Blood 1.04 mg/dL (0.40-1.00); Potassium, Blood 2.7 mmol/L (3.5-5.5)
--- NOTE | 2020-07-29 17:58 | NUR ---
SHIFT SUMMARY PT ALERT AND ORIENTED. BP LOW THIS SHIFT, BUT IMPROVING THIS EVENING. HR NSR. O2 SATS REMAIN ABOVE 90% ON RA. PT DENIES ANY PAIN. PT HAVING LIQUID BM THIS SHIFT, BUT REPORTS NOT MANY YESTERDAY. PT UNABLE TO WORK WITH PT DUE TO ORTHOSTATIC HYPOTENSION. KCL INFUSING PER ODERS. WILL CONTINUE TO MONITOR AND REPORT TO ONCOMING RN. CALL LIGHT IN REACH.
--- NOTE | 2020-07-29 19:59 | NUR ---
ASSUMED CARE PT IN ROOM, ALERT AND ORIENTED. VERY PLEASANT PT. DENIES PAIN AND SOB. VITALS ARE STABLE, SATS >92%. WILL CONTINUE TO MONITOR.
--- NOTE | 2020-07-29 23:00 | NUR ---
CALLED DR OCHOA REGARDING IMODIUM EXCEEDING 16MG PER [address] LIZ STATES SHE WILL ENTER NEW ORDER.
--- NOTE | 2020-07-30 00:45 | NUR ---
IMODIUM UPDATE DR GIRARD CHANGED IMODIUM ORDER TO BE Q6H WHILE AWAKE TO PREVENT FROM EXCEEDING THE 16 MG PER 24 HOUR PERIOD PERAMETER.
[2020-07-30 04:48] LABS: Anion Gap 7 mmol/L (6-16); Blood Urea Nitrogen 6 mg/dL (8-24); Bun/Creatinine Ratio 6.2 (12.0-20.0); CO2, Blood 22 mmol/L (21-32); Calcium, Blood 7.3 mg/dL (8.5-10.1); Chloride, Blood 115 mmol/L (98-108); Creatinine, Blood 0.97 mg/dL (0.40-1.00); Glomerular Filtration Rate >60 (60-); Glucose, Blood 73 mg/dL (70-99); Potassium, Blood 2.6 mmol/L (3.5-5.5); Sodium, Blood 144 mmol/L (136-145)
--- NOTE | 2020-07-30 05:55 | NUR ---
CALLED DR GIRARD, PT K+ WAS 2.6. ORDERS PER KCL 40IV X1.
--- NOTE | 2020-07-30 07:04 | NUR ---
SHIFT SUMMARY PT HAS BEEN STABLE. DENIES PAIN OR SOB. NO ACUTE CHANGES. K+ LOW THIS AM AND DR WAS CALLED. VITALS HAVE BEEN STABLE. PT BEDREST WITH BRIEF IN PLACE DUE TO INCONT OF URINE AND STOOL.
[2020-07-31 05:53] LABS: BASOPHILS ABSOLUTE AUTO 0.02 K/mm3 (0.00-0.23); BASOPHILS PERCENT AUTO 0 % (0-2); EOSINOPHILS ABSOLUTE AUTO 0.05 K/mm3 (0.00-0.68); EOSINOPHILS PERCENT AUTO 0 % (0-6); Hematocrit 24.4 % (33.0-51.0); Hemoglobin 8.7 g/dL (11.5-16.0); IMMATURE GRAN ABSOLUTE AUTO 0.05 K/mm3 (0.00-0.10); IMMATURE GRAN PERCENT AUTO 0 % (0-1); LYMPHOCYTES ABSOLUTE AUTO 1.87 K/mm3 (0.84-5.20); LYMPHOCYTES PERCENT AUTO 16 % (21-46); MONOCYTES ABSOLUTE AUTO 0.62 K/mm3 (0.16-1.47); MONOCYTES PERCENT AUTO 5 % (4-13); Mean Corpuscular HGB 32.5 pg (26.0-34.0); Mean Corpuscular HGB Conc 35.7 g/dL (31.5-36.5); Mean Corpuscular Volume 91 fL (80-100); Mean Platelet Volume 9.9 fL (9.1-12.4); NEUTROPHILS ABSOLUTE AUTO 8.82 K/mm3 (1.96-9.15); NEUTROPHILS PERCENT AUTO 77 % (41-73); Platelet Count 161 K/mm3 (150-400); RDW Coefficient Variation 18.2 % (11.7-14.2); RDW Standard Deviation 58.8 fL (35.1-46.3); Red Blood Cell Count 2.68 M/mm3 (3.80-5.20); White Blood Cell Count 11.43 K/mm3 (4.00-11.30)
[2020-07-31 06:13] LABS: Alanine Aminotransfer (ALT/SGP 30 U/L (12-78); Albumin, Blood 1.4 g/dL (3.4-5.0); Albumin/Globulin Ratio 0.6 (0.8-1.8); Alk Phos 83 U/L (50-136); Anion Gap 9 mmol/L (6-16); Aspartate Aminotrans (AST/SGOT 38 U/L (12-37); Bilirubin, Total 0.4 mg/dL (0.1-1.0); Blood Urea Nitrogen 5 mg/dL (8-24); Bun/Creatinine Ratio 5.4 (12.0-20.0); CO2, Blood 23 mmol/L (21-32); Calcium, Blood 6.8 mg/dL (8.5-10.1); Chloride, Blood 106 mmol/L (98-108); Creatinine, Blood 0.92 mg/dL (0.40-1.00); Globulin, Blood 2.4 g/dL (2.2-4.0); Glomerular Filtration Rate >60 (60-); Glucose, Blood 68 mg/dL (70-99); Sodium, Blood 138 mmol/L (136-145); Total Protein, Blood 3.8 g/dL (6.4-8.2)
[2020-07-31 06:15] LABS: Potassium, Blood 2.3 mmol/L (3.5-5.5)
--- NOTE | 2020-07-31 06:52 | NUR ---
UPDATE DR GIRARD NOTIFIED OF CRITICALLY LOW POTASSIUM RESULTS. ORDERS RECEIVED.
--- NOTE | 2020-07-31 07:27 | NUR ---
SHIFT SUMMARY PATIENT PLEASENT AND COOPERATIVE THROUGHOUT THE NIGHT. PATIENT APPEARED TO SLEEP WELL. VITAL SIGNS CHARTED. PATIENT CURRENTLY APPEARS TO BE ASLEEP, RESPIRATIONS EVEN AND UNLABORED. REPORT GIVEN TO ONCOMING RN.
[2020-07-31 15:52] LABS: Anion Gap 5 mmol/L (6-16); Blood Urea Nitrogen 5 mg/dL (8-24); Bun/Creatinine Ratio 5.4 (12.0-20.0); CO2, Blood 24 mmol/L (21-32); Calcium, Blood 7.1 mg/dL (8.5-10.1); Chloride, Blood 105 mmol/L (98-108); Creatinine, Blood 0.92 mg/dL (0.40-1.00); Glomerular Filtration Rate >60 (60-); Glucose, Blood 95 mg/dL (70-99); Magnesium, Blood 1.3 mg/dL (1.6-2.4); Potassium, Blood 3.1 mmol/L (3.5-5.5); Sodium, Blood 134 mmol/L (136-145)
--- NOTE | 2020-07-31 18:55 | NUR ---
SUMMARY NO ACUTE CHANGES NOTED THROUGH THE DAY. PT CONTINUES TO HAVE MULTIPLE LOOSE STOOLS, DENIES PAIN OR NAUSEA, VOIDING WNL. PT ENC TO REPOSITION Q2 HRS TO PREVENT SKIN BREAKDOWN, SHE REFUSES. ATTENDS CHANGED PRN. IV MAG & KCL GIVEN PER MD ORDERS. CALL LIGHT IN REACH, RESP UNLABORED, REPORT GIVEN TO NOC RN.
[2020-08-01 04:30] LABS: BASOPHILS PERCENT AUTO 0 % (0-2); EOSINOPHILS ABSOLUTE AUTO 0.09 K/mm3 (0.00-0.68); EOSINOPHILS PERCENT AUTO 1 % (0-6); Hematocrit 24.8 % (33.0-51.0); Hemoglobin 8.6 g/dL (11.5-16.0); IMMATURE GRAN ABSOLUTE AUTO 0.03 K/mm3 (0.00-0.10); IMMATURE GRAN PERCENT AUTO 0 % (0-1); LYMPHOCYTES ABSOLUTE AUTO 1.69 K/mm3 (0.84-5.20); LYMPHOCYTES PERCENT AUTO 24 % (21-46); MONOCYTES PERCENT AUTO 10 % (4-13); Mean Corpuscular HGB 31.9 pg (26.0-34.0); Mean Corpuscular HGB Conc 34.7 g/dL (31.5-36.5); Mean Corpuscular Volume 92 fL (80-100); Mean Platelet Volume 10.1 fL (9.1-12.4); NEUTROPHILS ABSOLUTE AUTO 4.67 K/mm3 (1.96-9.15); NEUTROPHILS PERCENT AUTO 65 % (41-73); Platelet Count 148 K/mm3 (150-400); RDW Coefficient Variation 18.1 % (11.7-14.2); White Blood Cell Count 7.18 K/mm3 (4.00-11.30)
[2020-08-01 04:47] LABS: Alanine Aminotransfer (ALT/SGP 23 U/L (12-78); Albumin, Blood 1.3 g/dL (3.4-5.0); Albumin/Globulin Ratio 0.5 (0.8-1.8); Alk Phos 74 U/L (50-136); Anion Gap 7 mmol/L (6-16); Aspartate Aminotrans (AST/SGOT 25 U/L (12-37); Bilirubin, Total 0.3 mg/dL (0.1-1.0); Blood Urea Nitrogen 4 mg/dL (8-24); Bun/Creatinine Ratio 4.5 (12.0-20.0); CO2, Blood 23 mmol/L (21-32); Calcium, Blood 6.7 mg/dL (8.5-10.1); Chloride, Blood 104 mmol/L (98-108); Creatinine, Blood 0.89 mg/dL (0.40-1.00); Globulin, Blood 2.4 g/dL (2.2-4.0); Glomerular Filtration Rate >60 (60-); Glucose, Blood 161 mg/dL (70-99); Magnesium, Blood 1.6 mg/dL (1.6-2.4); Potassium, Blood 2.9 mmol/L (3.5-5.5); Sodium, Blood 134 mmol/L (136-145); Total Protein, Blood 3.7 g/dL (6.4-8.2)
--- NOTE | 2020-08-01 05:32 | NUR ---
UPDATE DR GIRARD NOTIFIED OF PATIENT'S POTASSIUM LEVEL THIS MORNING. ORDER RECEIVED.
--- NOTE | 2020-08-01 06:18 | NUR ---
SHIFT SUMMARY PATIENT MUCH MORE WITHDRAWN THIS SHIFT AND APPEARED LESS TALKITIVE LAST NIGHT THAN THE PREVIOUS NIGHT. PATIENT APPEARED TO SLEEP WELL THROUGHOUT MOST OF THE NIGHT. PATIENT DECLINED REPOSITIONING FREQUENTLY. PATIENT CONTINUED TO HAVE FREQUENT BM'S THROUGHOUT THE NIGHT. WILL CONTINUE CURRENT PLAN OF CARE AND REPORT TO ONCOMING RN.
--- NOTE | 2020-08-01 18:43 | NUR ---
SUMMARY NO ACUTE CHANGES NOTED THROUGH THE DAY. PT HAS BEEN RESTING QUIETLY. ELCTROLYTE REPLACEMENT ORDERED. TOLERATING PO INTAKE. BM'S HAVE SLOWED PER PT. TOLERATING PO INTAKE. CALL LIGHT IN REACH
[2020-08-01 20:22] LABS: Anion Gap 6 mmol/L (6-16); Blood Urea Nitrogen 5 mg/dL (8-24); Bun/Creatinine Ratio 5.9 (12.0-20.0); CO2, Blood 24 mmol/L (21-32); Calcium, Blood 7.2 mg/dL (8.5-10.1); Chloride, Blood 102 mmol/L (98-108); Creatinine, Blood 0.85 mg/dL (0.40-1.00); Glomerular Filtration Rate >60 (60-); Glucose, Blood 170 mg/dL (70-99); Potassium, Blood 3.5 mmol/L (3.5-5.5); Sodium, Blood 132 mmol/L (136-145)
[2020-08-02 04:35] LABS: Anion Gap 6 mmol/L (6-16); Blood Urea Nitrogen 4 mg/dL (8-24); Bun/Creatinine Ratio 4.7 (12.0-20.0); CO2, Blood 24 mmol/L (21-32); Chloride, Blood 103 mmol/L (98-108); Creatinine, Blood 0.85 mg/dL (0.40-1.00); Glomerular Filtration Rate >60 (60-); Glucose, Blood 131 mg/dL (70-99); Potassium, Blood 3.4 mmol/L (3.5-5.5); Sodium, Blood 133 mmol/L (136-145)
--- NOTE | 2020-08-02 05:59 | NUR ---
SHIFT SUMMARY PT RESTED WELL THROUGH NIGHT. ALERT AND ORIENTED - INTERMITTENT CONFUSION. ABLE TO MAKE NEEDS KNOWN. TELE NSR. SATS >90% ON ROOM AIR. INCONTINENT OF URINE AND STOOL - ATTENDS CHANGED NEEDED. ABLE TO TURN SELF IN BED. CALL LIGHT WITHIN REACH, BED IN LOWEST POSITION. WILL CONTINUE TO MONITOR.
--- NOTE | 2020-08-02 10:22 | NUR ---
ASSUMED CARE OF PT AT THIS TIME FROM TONE FRAUSTO.
--- NOTE | 2020-08-02 13:01 | NUR ---
PT TRANSFERED UP FROM PCU, ORIENTED PT TO THE ROOM AND CALL SYSTEM
--- NOTE | 2020-08-02 17:45 | NUR ---
SUMMARY PT SITTING UP IN BED EATING DINNER, PT HAS BEEN PLEASANT AND COOPERATIVE WITH CARE, WORKED WITH THERAPY, OCC INCONTINENT STOOL, ATTENDS IN PLACE, PT USES HER CALL LIGHT APPROPRIATELY, BP REMAINS LOW, NO COMPLAINTS, WILL CONT TO MONITOR
[2020-08-03 06:14] LABS: Hematocrit 29.2 % (33.0-51.0); Hemoglobin 9.9 g/dL (11.5-16.0); Mean Corpuscular HGB 31.9 pg (26.0-34.0); Mean Corpuscular HGB Conc 33.9 g/dL (31.5-36.5); Mean Corpuscular Volume 94 fL (80-100); Mean Platelet Volume 11.1 fL (9.1-12.4); Platelet Count 199 K/mm3 (150-400); RDW Coefficient Variation 18.2 % (11.7-14.2); White Blood Cell Count 12.18 K/mm3 (4.00-11.30)
[2020-08-03 06:29] LABS: Anion Gap 9 mmol/L (6-16); Blood Urea Nitrogen 4 mg/dL (8-24); Bun/Creatinine Ratio 4.7 (12.0-20.0); CO2, Blood 22 mmol/L (21-32); Calcium, Blood 7.3 mg/dL (8.5-10.1); Chloride, Blood 111 mmol/L (98-108); Creatinine, Blood 0.85 mg/dL (0.40-1.00); Glomerular Filtration Rate >60 (60-); Glucose, Blood 108 mg/dL (70-99); Potassium, Blood 3.2 mmol/L (3.5-5.5); Sodium, Blood 142 mmol/L (136-145)
[2020-08-03 07:01] LABS: BAND PERCENT MAN 17 % (0-8); BASOPHILS PERCENT MAN 0 % (0-2); EOSINOPHILS PERCENT MAN 0 % (0-6); LYMPHOCYTES ABSOLUTE MAN 1.46 K/mm3 (0.84-5.20); LYMPHOCYTES PERCENT MAN 12 % (21-46); MONOCYTES ABSOLUTE MAN 1.21 K/mm3 (0.16-1.47); MONOCYTES PERCENT MAN 10 % (4-13); SEG NEUTROPHILS PERCENT MAN 61 % (41-73); TOTAL CELLS COUNTED 100
--- NOTE | 2020-08-03 07:30 | NUR ---
Patient didn't rest well overnight. 3-4 med liquid stools mixed with urine. One stool was extra large amount of liquid stool, then the next time she was on bedpan, she was able to produce a fair amount of urine with no stools. Patient is pleasant, oriented and cooperative with care. still with complaints of lightheadedness even when the head of the bed is being raised.
[2020-08-03] MEDS ORDERED: DICY20 PO (14:56)
[2020-08-03] MEDS ORDERED: DIPATR PO (14:56)
[2020-08-03] MEDS ORDERED: LOPE2C PO (14:57)
[2020-08-03] MEDS ORDERED: XARELTO20 MG PO (14:58)
[2020-08-03] MEDS ORDERED: HYDCOR10 PO (15:00)
--- NOTE | 2020-08-03 18:01 | NUR ---
DISCHAGE NOTE PT DC HOME WITH HOME HEALTH. BEFORE BEING DC PATIENT WORKED WITH OT AND PRACTIED TRANSFERING WITH GAIT [employer]T. PT DAUGHTER-DANIELLE VOICED CONCERNS ABOUT PT COMING HOME AND HER NOT BEING ABLE TO HELP HER WITH ADL'S. OT STATED PT IS A MINAMAL TO MODERATE TRANSFER WITH GAIT BELT, BELIEVED PT WAS NEAR HER BASELINE. PT TRANSFERED TO WHELLCHAIR WITH 2 PERSON STAND PIVOT. WENT OVER DC PACKET WITH PT AND TOOK OUT IV. MEDICATIONS LIST FAXED TO [facility] IN [place]. PT TAKEN OFF THE FLOOR VIA WHEELCHAIR BY GROUP ACTIVITIES AIDE. UMAIR NUNN STATED PT WAS A HEAVY TRANSFER TO THE CAR. GAIT BELT WENT HOME WITH PATIENT.
== END 2020-08-03 16:50 | disposition home health service (06) | DRG 872 ==
LOC: ER 18:12 → ERHOLD 20:25 → PCU 20:25 → MEDS 08-02 12:49
PROVIDERS: Emergency Medicine; Family Medicine; ADMIT Internal Medicine
DX: A41.59 Other Gram-negative sepsis (principal); N39.0 Urinary tract infection, site not specified; E27.40 Unspecified adrenocortical insufficiency; E23.0 Hypopituitarism; E87.2 Acidosis; F17.210 Nicotine dependence, cigarettes, uncomplicated; E87.6 Hypokalemia; E86.0 Dehydration; E03.9 Hypothyroidism, unspecified; E11.9 Type 2 diabetes mellitus without complications; I10 Essential (primary) hypertension; F32.9 Major depressive disorder, single episode, unspecified; Z23 Encounter for immunization; G43.909 Migraine, unspecified, not intractable, without status migrainosus; E78.5 Hyperlipidemia, unspecified; K21.9 Gastro-esophageal reflux disease without esophagitis; I48.0 Paroxysmal atrial fibrillation; K52.9 Noninfective gastroenteritis and colitis, unspecified; I95.1 Orthostatic hypotension; D72.829 Elevated white blood cell count, unspecified; T38.0X5A Adverse effect of glucocorticoids and synthetic analogues, initial encounter; R65.20 Severe sepsis without septic shock; D50.9 Iron deficiency anemia, unspecified; J44.9 Chronic obstructive pulmonary disease, unspecified; Z96.1 Presence of intraocular lens; Z91.038 Other insect allergy status; Z88.2 Allergy status to sulfonamides; Z88.8 Allergy status to other drugs, medicaments and biological substances; Z88.1 Allergy status to other antibiotic agents; Z91.048 Other nonmedicinal substance allergy status; Z98.890 Other specified postprocedural states; Z98.42 Cataract extraction status, left eye; Z90.2 Acquired absence of lung [part of]; Z79.01 Long term (current) use of anticoagulants; Z79.899 Other long term (current) drug therapy; Z79.4 Long term (current) use of insulin; Z85.828 Personal history of other malignant neoplasm of skin; Z90.710 Acquired absence of both cervix and uterus
CPT/HCPCS: 0097U; 36415; 51701; 80048; 80053; 81001; 82274; 82330; 82947; 83605; 83735; 84439; 84443; 84484; 85025; 85045; 87040; 87086; 87177; 87209; 87324; 87493; 93005; 93010; 94640; 94760; 96361-59; 96365-59; 97110; 97116; 97162; 97166; 97530; 97535; 99285-25; A9270; C1751; J0610; J0744; J1720; J1956; J2354; J3475; J3480; J7030; J7120; P9046